=== PATIENT | male | born 1985 | race Caucasian/White ===

== ENCOUNTER 2016-03-01 08:05 | Emergency (ER) | payer OTHER ==
[2016-03-01] MEDS ORDERED: MORPHINE 4 MG/ML 1ML SYRINGE As Ordered ONE (08:55)
[2016-03-01] MEDS ORDERED: ONDANSETRON 4MG/2ML VIAL (J2405) As Ordered ONE (08:55)
--- NOTE | 2016-03-01 09:34 | REP ---
Clinical: Chest pain . Comparison: 01/23/2016 . Technique: PA and lateral. Findings: The mediastinum and cardiac silhouette are normal. The lung yusuf are clear and without acute consolidation, effusion, or pneumothorax. The skeletal structures are intact and normal. Impression: 1. No acute cardiopulmonary process. Signed by Morteza Dubon MD 03/01/2016 09:26 A
[2016-03-01] MEDS ORDERED: PERCOCET 5MG/325MG TAB As Ordered ONE (09:49)
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
== END 2016-03-01 10:02 | disposition home or self-care (01) ==
LOC: M ED 08:05
DX: M25.512 Pain in left shoulder (principal); R20.2 Paresthesia of skin; R29.898 Other symptoms and signs involving the musculoskeletal system; D84.1 Defects in the complement system; Z86.73 Personal history of transient ischemic attack (TIA), and cerebral infarction without residual deficits; F17.200 Nicotine dependence, unspecified, uncomplicated; Z79.82 Long term (current) use of aspirin; Z79.899 Other long term (current) drug therapy; Z88.8 Allergy status to other drugs, medicaments and biological substances

== ENCOUNTER 2016-03-06 09:27 | Emergency (ER) | payer OTHER ==
[2016-03-06] MEDS ORDERED: PERCOCET 5MG/325MG TAB As Ordered ONE (10:02)
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
== END 2016-03-06 10:05 | disposition home or self-care (01) ==
LOC: M ED 09:27
DX: M79.602 Pain in left arm (principal); E88.09 Other disorders of plasma-protein metabolism, not elsewhere classified; F17.210 Nicotine dependence, cigarettes, uncomplicated; Z79.82 Long term (current) use of aspirin; Z79.899 Other long term (current) drug therapy; Z88.8 Allergy status to other drugs, medicaments and biological substances

== ENCOUNTER 2016-03-12 14:47 | Emergency (ER) | payer OTHER ==
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
[2016-03-13] MEDS ORDERED: VARE05TA PO (14:44)
[2016-03-13] MEDS ORDERED: NEUR600T PO (14:44)
[2016-03-13] MEDS ORDERED: OXYC1TAB23 PO (14:44)
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
== END 2016-03-12 15:19 | disposition home or self-care (01) ==
LOC: M ED 14:47
DX: Z76.0 Encounter for issue of repeat prescription (principal); M79.602 Pain in left arm; G89.29 Other chronic pain; D84.1 Defects in the complement system; Z86.73 Personal history of transient ischemic attack (TIA), and cerebral infarction without residual deficits; Z87.828 Personal history of other (healed) physical injury and trauma; Z79.899 Other long term (current) drug therapy; Z79.82 Long term (current) use of aspirin; Z88.8 Allergy status to other drugs, medicaments and biological substances; F17.210 Nicotine dependence, cigarettes, uncomplicated

== ENCOUNTER → 2016-03-13 | Outpatient (CLI) | payer OTHER ==
[~2016-03-13] MED LIST: DOXYCYCLINE HYCLATE 100 MG TAB PO ONE; LR 1,000 ML IV SCH; MIDAZOLAM INJ 2 MG/2 ML VIAL (J2250) As Ordered ONE; NEUR600T PO; OXYC1TAB23 PO; VARE05TA PO
[2016-03-13 15:50] VITALS: BP 115/72
--- NOTE | 2016-03-13 15:53 | T-ECHO ---
DATE OF PROCEDURE: 03/13/2016 REFERRING PHYSICIAN: PREPROCEDURE DIAGNOSIS: Acute cerebellar stroke. POSTPROCEDURE DIAGNOSIS: Acute cerebellar stroke. FINDINGS: Normal transesophageal echocardiogram (JACI). No patent foramen ovale (PFO). PROCEDURE: Transesophageal echocardiogram with saline contrast IV times four. SURGEON: Holland Howard MD REAL ESTATE UTILIZATION OFFICER: None. CONSCIOUS SEDATION: Light conscious sedation with midazolam 4 mg IV. COMPLICATIONS: None. DESCRIPTION OF PROCEDURE: Rhythm was sinus. The patient received Cetacaine spray to the back of the pharynx. She received a total of 4 mg of midazolam IV for light conscious sedation. The patient tolerated the procedure well without any immediate complications. Esophageal intubation was accomplished using a Jennifer multiplane two-dimensional transesophageal echocardiogram probe. The left and right ventricles appeared normal in size and systolic function. No regional wall motion abnormalities of the left ventricle. No intracardiac masses or spontaneous echo contrast. No vegetations on any of the cardiac valves. Atrial septum was intact anatomically. No color flow Doppler was seen across the intraatrial septum. No patent foramen ovale could be demonstrated with saline contrast IV times four with Valsalva maneuver release. Aortic valve was three-cuspid and was structurally functional. Mitral leaflets were structurally and functionally normal with very mild mitral regurgitation within normal limits. Tricuspid leaflets were normal. Pulmonic valve was normal with trace pulmonic regurgitation. No pericardial effusion. Distal aortic arch and descending thoracic aorta were normal. CONCLUSIONS: 1. Normal transesophageal echocardiogram. 2. Negative for detection of intracardiac shunting or patent foramen ovale with saline contrast IV times four.
== END ==
LOC: M OPP 13:52
PROVIDERS: ATTEND Internal Medicine Cardiovascular Disease
DX: I63.8 Other cerebral infarction (principal); K76.9 Liver disease, unspecified; Z79.899 Other long term (current) drug therapy; Z88.8 Allergy status to other drugs, medicaments and biological substances

== ENCOUNTER 2016-07-22 15:29 | Emergency (ER) | payer MEDICAID, OTHER ==
[~2016-07-22] VITALS: Ht 185.4 cm; Wt 81.6 kg
[~2016-07-22 15:29] MED LIST changes: -DOXYCYCLINE HYCLATE 100 MG TAB PO ONE; -LR 1,000 ML IV SCH; -MIDAZOLAM INJ 2 MG/2 ML VIAL (J2250) As Ordered ONE
[2016-07-22] MEDS ORDERED: C1 ESTERASE INHIBITOR IV ONE (16:00)
[2016-07-22] MEDS ORDERED: EPINEPHrine INJ 1 MG/ML 1ML AMP IM STA (16:00)
[2016-07-22] MEDS ORDERED: DILUENT IV ONE (16:00)
[2016-07-22] MEDS ORDERED: EPINEPHrine INJ 1 MG/ML 1ML AMP As Ordered ONE (16:03)
[2016-07-22 17:37] VITALS: BP 147/89
[2016-07-22 20:23] LABS: ANION GAP 7 MEQ/L (8-16); BLOOD UREA NITROGEN 11 MG/DL (7-18); CALCIUM LEVEL 6.1 MG/DL (8.5-10.1); CARBON DIOXIDE LEVEL 21 MEQ/L (21-32); CHLORIDE LEVEL 120 MEQ/L (98-107); CREATININE FOR GFR 0.44 MG/DL (0.70-1.30); GLOMERULAR FILTRATION RATE > 60.0 (>60); GLUCOSE, FASTING 76 MG/DL (70-105); SODIUM LEVEL 148 MEQ/L (136-145)
== END 2016-07-22 17:50 | disposition home or self-care (01) ==
LOC: M ED 17:24
DX: Z76.5 Malingerer [conscious simulation] (principal); Z86.73 Personal history of transient ischemic attack (TIA), and cerebral infarction without residual deficits; Z88.8 Allergy status to other drugs, medicaments and biological substances
CPT/HCPCS: 80048; 96372; 96374; 99283; J0597

== ENCOUNTER → 2017-07-07 | Outpatient (CLI) | payer MEDICAID | LOC: M OUTALCOH 08:07 | DX: F11.20 Opioid dependence, uncomplicated (principal) ==

== ENCOUNTER 2017-07-17 13:42 | Outpatient (RCR) | payer MEDICAID | END 2017-08-15 | LOC: M OUTALCOH 13:42 | DX: F11.20 Opioid dependence, uncomplicated (principal); F17.200 Nicotine dependence, unspecified, uncomplicated; F12.20 Cannabis dependence, uncomplicated ==

== ENCOUNTER 2017-12-24 10:23 | Emergency (ER) | payer OTHER, MEDICAID ==
[2017-12-24 11:33] LABS: HEMATOCRIT 44.4 % (42.0-52.0); HEMOGLOBIN 14.6 g/dl (13.5-17.5); MEAN CORPUSCULAR HEMOGLOBIN 26.5 pg (27.0-33.0); MEAN CORPUSCULAR HGB CONC 32.9 g/dl (32.0-36.5); MEAN CORPUSCULAR VOLUME 80.6 fl (80.0-96.0); PLATELET COUNT, AUTOMATED 241 10^3/uL (150-450); RED BLOOD COUNT 5.51 10^6/uL (4.30-6.10); RED CELL DISTRIBUTION WIDTH 14.5 % (11.5-14.5); WHITE BLOOD COUNT 7.7 10^3/uL (4.0-10.0)
[2017-12-24 12:11] LABS: ALBUMIN 4.2 GM/DL (3.2-5.2); ALBUMIN/GLOBULIN RATIO 1.14 (1.00-1.93); ALKALINE PHOSPHATASE 96 U/L (45-117); ALT/SGPT 95 U/L (12-78); ANION GAP 4 MEQ/L (8-16); AST/SGOT 42 U/L (7-37); BILIRUBIN,DIRECT 0.2 MG/DL (0.0-0.2); BILIRUBIN,TOTAL 1.1 MG/DL (0.2-1.0); BLOOD UREA NITROGEN 13 MG/DL (7-18); CALCIUM LEVEL 9.6 MG/DL (8.5-10.1); CARBON DIOXIDE LEVEL 30 MEQ/L (21-32); CHLORIDE LEVEL 107 MEQ/L (98-107); CREATININE FOR GFR 0.82 MG/DL (0.70-1.30); GLOMERULAR FILTRATION RATE > 60.0 (>60); GLUCOSE, FASTING 92 MG/DL (70-100); POTASSIUM SERUM 4.4 MEQ/L (3.5-5.1); SODIUM LEVEL 141 MEQ/L (136-145); TOTAL PROTEIN 7.9 GM/DL (6.4-8.2)
[2017-12-24 12:31] LABS: APPEARANCE, URINE CLEAR (CLEAR); BACTERIA, URINE AUTO NEGATIVE (NEGATIVE); BILIRUBIN, URINE AUTO NEGATIVE (NEGATIVE); BLOOD, URINE BLOOD 1+ (NEGATIVE); COLOR, URINE STRAW (YELLOW); GLUCOSE, URINE (UA) AUTO NEGATIVE (NEGATIVE); KETONE, URINE AUTO NEGATIVE (NEGATIVE); LEUKOCYTE ESTERASE, URINE AUTO NEGATIVE (NEGATIVE); NITRITE, URINE AUTO NEGATIVE (NEGATIVE); PROTEIN, URINE AUTO NEGATIVE (NEGATIVE); RBC, URINE AUTO 2 /HPF (0-3); SPECIFIC GRAVITY URINE AUTO 1.004 (1.002-1.035); SQUAMOUS EPITHELIAL CELL UR AU 0 /HPF (0-6); UROBILINOGEN, URINE AUTO 0.2 mg/dL (0.0-2.0); WBC, URINE AUTO 1 /HPF (0-3)
== END 2017-12-24 13:20 | disposition home or self-care (01) ==
LOC: M ED 10:23
DX: H05.229 Edema of unspecified orbit (principal); I25.10 Atherosclerotic heart disease of native coronary artery without angina pectoris; B19.20 Unspecified viral hepatitis C without hepatic coma; I67.1 Cerebral aneurysm, nonruptured; Z79.899 Other long term (current) drug therapy; Z88.8 Allergy status to other drugs, medicaments and biological substances
CPT/HCPCS: 80076

== ENCOUNTER 2018-05-07 21:05 | Inpatient (IN) | payer OTHER ==
[~2018-05-07] VITALS: Ht 185.4 cm; Wt 99.3 kg
[2018-05-07] MEDS ORDERED: BUPR15TA (21:31)
[2018-05-07] MEDS ORDERED: IBUP200C25 PO (21:31)
[2018-05-07] MEDS ORDERED: MIRT45TA4 (21:31)
[2018-05-07] MEDS ORDERED: BUSP30TA (21:31)
[2018-05-07] MEDS ORDERED: PROPOFOL 1,000 MG/100 ML VIAL As Ordered ONE (21:33)
[2018-05-07] MEDS ORDERED: SUCCINYLCHOLINE INJ 200 MG/10 ML VIAL (J0330) IV STA (21:36)
[2018-05-07] MEDS ORDERED: ETOMIDATE INJ 20MG/10ML VIAL IV STA (21:36)
[2018-05-07] MEDS: PROPOFOL 200 MG/20 ML VIAL IV ONE (21:37)
[2018-05-07] MEDS ORDERED: PROPOFOL 200 MG/20 ML VIAL IV ONE ×2 (21:45→22:00)
[2018-05-07] MEDS ORDERED: PROPOFOL 1,000 MG in APPROPRIATE DILUENT 1 EA IV SCH (21:45)
[2018-05-07 21:59] LABS: BASO # 0.1 10^3/uL (0.0-0.2); BASO % 0.5 % (0.0-1.0); EOS # 0.2 10^3/uL (0.0-0.50); EOS % 1.5 % (0.0-3.0); HEMATOCRIT 46.9 % (42.0-52.0); HEMOGLOBIN 15.4 g/dl (13.5-17.5); LYMPH # 2.8 10^3/uL (1.5-4.5); LYMPH % 21.4 % (24.0-44.0); MEAN CORPUSCULAR HGB CONC 32.8 g/dl (32.0-36.5); MEAN CORPUSCULAR VOLUME 82.1 fl (80.0-96.0); MONO % 7.9 % (0.0-5.0); NEUTROPHILS % 68.3 % (36.0-66.0); PLATELET COUNT, AUTOMATED 239 10^3/uL (150-450); RED BLOOD COUNT 5.71 10^6/uL (4.30-6.10); WHITE BLOOD COUNT 13.1 10^3/uL (4.0-10.0)
[2018-05-07] MEDS ORDERED: LIDOCAINE 2% 5ML JELLY UROJET TOP ONE (22:00)
[2018-05-07] MEDS ORDERED: NS 1,000 ML IV ONE (22:00)
[2018-05-07 22:03] LABS: ABG BASE EXCESS 0.9 (-2.0-2.0); ABG HCO3 25.1 MEQ/L (22.0-26.0); ABG O2 SATURATION 99.5 % (95.0-99.0); ABG PARTIAL PRESSURE O2 196.9 mmHg (75.0-100.0); ABG STANDARD HCO3 25.3 MEQ/L (22.0-26.0); ABG TOTAL CO2 26.3 MEQ/L (22.0-29.0); ABG pH (ARTERIAL) 7.427 UNITS (7.350-7.450)
[2018-05-07 22:30] LABS: ALT/SGPT 118 U/L (12-78); BILIRUBIN,DIRECT < 0.1 MG/DL (0.0-0.2); BILIRUBIN,TOTAL 0.7 MG/DL (0.2-1.0); BLOOD UREA NITROGEN 17 MG/DL (7-18); CALCIUM LEVEL 8.6 MG/DL (8.5-10.1); CARBON DIOXIDE LEVEL 25 MEQ/L (21-32); CHLORIDE LEVEL 108 MEQ/L (98-107); CREATININE FOR GFR 0.91 MG/DL (0.70-1.30); GLOMERULAR FILTRATION RATE > 60.0 (>60); GLUCOSE, FASTING 84 MG/DL (70-100); POTASSIUM SERUM 4.8 MEQ/L (3.5-5.1); SODIUM LEVEL 142 MEQ/L (136-145); TOTAL PROTEIN 7.8 GM/DL (6.4-8.2)
[2018-05-07 22:39] LABS: AMPHETAMINES LEVEL URINE NEGATIVE (NEGATIVE); BARBITURATES URINE NEGATIVE (NEGATIVE); BENZODIAZEPINES URINE NEGATIVE (NEGATIVE); CANNABINOIDS URINE NEGATIVE (NEGATIVE); COCAINE METABOLITE URINE NEGATIVE (NEGATIVE); METHADONE URINE NEGATIVE (NEGATIVE); OPIATES URINE NEGATIVE (NEGATIVE); PHENCYCLIDINE URINE NEGATIVE (NEGATIVE)
[2018-05-07] MEDS ORDERED: dexameTHASONE 20 MG/5 ML VIAL (J1100) IV ONE (23:15)
[2018-05-07] MEDS ORDERED: PATIENT COMMENTS (23:40)
[2018-05-08] VITALS (34 sets, daily range): BP systolic 98–119; BP diastolic 51–73; O2SAT 98–100
[2018-05-08] MEDS: PROPOFOL 1,000 MG in APPROPRIATE DILUENT 1 EA IV SCH ×7 (00:20→22:04)
[2018-05-08] MEDS: MIDAZOLAM HCL 100 MG in D5W 80 ML IV SCH ×2 (00:30→02:50)
[2018-05-08] MEDS ORDERED: REFRIGERATOR IV KEYS XX PRN (00:30)
[2018-05-08] MEDS: FAMOTIDINE IV BAG 20 MG in APPROPRIATE DILUENT 1 EA IV SCH ×3 (00:33→23:53)
[2018-05-08] MEDS: D5W/0.45% SODIUM CHLORIDE 1,000 ML IV SCH ×4 (00:33→20:40)
[2018-05-08] MEDS: MORPHINE 4 MG/ML 1ML VIAL/SYRINGE (J2270) IV PRN (00:40)
[2018-05-08] MEDS: ALBUTEROL SULFATE 2.5 MG/0.5 ML INH NEB SOLN NEB SCH ×6 (02:42→21:26)
[2018-05-08] MEDS: methylPREDNISolone INJ 125 MG/2 ML VIAL (J2930) IV SCH ×2 (03:13→11:49)
[2018-05-08] MEDS: HEPARIN SOD (PORCINE) 5000 UNITS/ML VIAL SC SCH ×3 (05:03→21:59)
[2018-05-08 05:52] LABS: ABG HCO3 21.6 MEQ/L (22.0-26.0); ABG O2 SATURATION 99.6 % (95.0-99.0); ABG PARTIAL PRESSURE CO2 41.4 mmHg (35.0-45.0); ABG PARTIAL PRESSURE O2 206.7 mmHg (75.0-100.0); ABG STANDARD HCO3 21.2 MEQ/L (22.0-26.0); ABG TOTAL CO2 22.9 MEQ/L (22.0-29.0); ABG pH (ARTERIAL) 7.336 UNITS (7.350-7.450)
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
[2018-05-08] MEDS: CHLORHEXIDINE GLUCONATE 0.12 % 15ML UDC (PERIDEX ORAL RINSE) MT SCH ×2 (08:02→20:39)
[2018-05-08 08:45] LABS: BASO % 0.3 % (0.0-1.0); HEMATOCRIT 41.5 % (42.0-52.0); LYMPH # 0.9 10^3/uL (1.5-4.5); LYMPH % 13.1 % (24.0-44.0); MEAN CORPUSCULAR HEMOGLOBIN 26.7 pg (27.0-33.0); MEAN CORPUSCULAR HGB CONC 32.3 g/dl (32.0-36.5); MEAN CORPUSCULAR VOLUME 82.8 fl (80.0-96.0); MONO # 0.1 10^3/uL (0.0-0.8); NEUTROPHILS % 85.3 % (36.0-66.0); PLATELET COUNT, AUTOMATED 147 10^3/uL (150-450); RED BLOOD COUNT 5.01 10^6/uL (4.30-6.10)
[2018-05-08] MEDS ORDERED: MIDAZOLAM INJ 2 MG/2 ML VIAL (J2250) IV PRN (09:00)
[2018-05-08 09:05] LABS: HEMOGLOBIN 13.4 g/dl (13.5-17.5)
[2018-05-08 09:23] LABS: ALBUMIN 3.3 GM/DL (3.2-5.2); ALT/SGPT 91 U/L (12-78); BILIRUBIN,TOTAL 0.6 MG/DL (0.2-1.0); BLOOD UREA NITROGEN 13 MG/DL (7-18); CALCIUM LEVEL 8.4 MG/DL (8.5-10.1); CARBON DIOXIDE LEVEL 24 MEQ/L (21-32); CHLORIDE LEVEL 108 MEQ/L (98-107); CHOLESTEROL LEVEL 124 MG/DL (< 200); CPK CREATINE PHOSPHOKINASE 217 U/L (39-308); CREATININE FOR GFR 0.96 MG/DL (0.70-1.30); GLOMERULAR FILTRATION RATE > 60.0 (>60); GLUCOSE, FASTING 182 MG/DL (70-100); LDH LACTATE DEHYDROGENASE 191 U/L (87-241); PHOSPHORUS LEVEL 2.4 MG/DL (2.5-4.9); POTASSIUM SERUM 4.2 MEQ/L (3.5-5.1); SODIUM LEVEL 141 MEQ/L (136-145); TOTAL PROTEIN 6.7 GM/DL (6.4-8.2); TRIGLYCERIDES LEVEL 46 MG/DL (<150)
[2018-05-08] MEDS ORDERED: MIDAZOLAM INJ 2 MG/2 ML VIAL (J2250) As Ordered ONE (10:01)
[2018-05-08] MEDS: MIDAZOLAM INJ 2 MG/2 ML VIAL (J2250) IV PRN ×7 (10:05→21:49)
--- NOTE | 2018-05-08 10:12 | REP ---
CHEST, PORTABLE: AP portable view of the chest is performed and compared to a prior study of 03/01/2016. Endotracheal tube is seen with tip approximately 5.2 cm above the jade. Heart is normal in size. Mediastinal silhouette is unremarkable. There is no acute infiltrate in either lung. Electronically Signed by Marcin Gonzales MD 05/08/2018 06:51 P
--- NOTE | 2018-05-08 10:15 | REP ---
PORTABLE CHEST: AP portable view of the chest is performed and compared to prior exam 05/07/2018. Lungs remain free of infiltrate. Heart is normal in size and the mediastinal silhouette is unremarkable. Endotracheal tube is seen with the tip approximately 4.5 cm above the jade. Nasogastric tube is seen but the sideport is difficult to visualize. The tube does appear to traverse into the stomach. Electronically Signed by Marcin Gonzales MD 05/08/2018 06:51 P
--- NOTE | 2018-05-08 10:32 | REP ---
PORTABLE CHEST: AP portable view of the chest is performed and compared to a prior exam of the same day. Endotracheal tube is seen with the tip approximately 4.2 cm above the jade. Nasogastric tube traverses into the stomach, but the sideport is difficult to visualize. Remainder of the study is unchanged. Electronically Signed by Marcin Gonzales MD 05/08/2018 06:51 P
--- NOTE | 2018-05-08 12:41 | CCN ---
CRITICAL CARE PROGRESS NOTE DATE OF VISIT: 05/08/2018 start time 10:35, stop time 11:09. I again attended Taran Kirby here in the intensive care unit. Patient has been admitted and chart is reviewed. He remains intubated and stayed mechanically ventilated. Less edema of his lips today. Tongue appears a little smaller. T-max overnight 98, blood pressure 98 to the one-teens, heart rate 70-90 with a sinus mechanism. He does over breath the ventilatory. INTAKE AND OUTPUT: 1647 mL in with 570 mL out. Chest x-ray is clear. White blood cell count 7.0, hemoglobin of 30.4, platelet count of 147,000, 84% segmented neutrophils, no bands. Sodium 141, potassium 4.2, chloride 108, CO2 24, BUN 13, creatinine 0.96. Blood gas done in a PRVC rate of 16, tidal volume of 450, PEEP of 5, FiO2 of 30%, has a pH of 7.336, CO2 of 41.4, pO2 of 206.7. Toxicology screen negative. PHYSICAL EXAMINATION: He is sedate, but moves all extremities with sedation even moderately lightened. Pupils reactive, sclera clear. Trachea is midline. Still has some mild edema of his lips. Tongue appears much less edematous than decreased to me in the emergency room (ER). Trachea is in the midline. CHEST: Clear to auscultation and percussion. Symmetric expansion. No other focal adventitious breath sounds on exam. Pulses palpable throughout. CARDIAC EXAM: Regular with no murmur, rub, or gallop. Peripheral pulses palpable with no edema. ABDOMEN: Soft, nontender. There is active bowel sounds. No convincing organomegaly or masses. EXTREMITIES: No cyanosis or clubbing. NEUROLOGIC: He is sedate, but moves all extremities. The most pressing problems requiring my presence at the bedside: Respiratory failure secondary to need for airway protection from angioedema, hereditary. Drug ingested likely is the precipitating event. Known drug abuse. At this point we will slowly steroids. We will continue H2 blockers. I will begin enteral feeds. We will slowly begin weaning his ventilatory. Once it is better he should be able to have his sedation discontinued and hopefully he will quickly extubate at that time. I have spoken at length with the guards at the bedside. At this point we will proceed as outline above. He does remain critically ill. I left the bedside at 1109 hours. 34 minutes of critical care time spent at the bedside not including procedures. JANET
[2018-05-08 18:16] LABS: ABG BASE EXCESS -1.9 (-2.0-2.0); ABG HCO3 23.2 MEQ/L (22.0-26.0); ABG O2 SATURATION 98.8 % (95.0-99.0); ABG PARTIAL PRESSURE CO2 40.8 mmHg (35.0-45.0); ABG PARTIAL PRESSURE O2 123.3 mmHg (75.0-100.0); ABG STANDARD HCO3 22.9 MEQ/L (22.0-26.0); ABG TOTAL CO2 24.5 MEQ/L (22.0-29.0); ABG pH (ARTERIAL) 7.373 UNITS (7.350-7.450)
[2018-05-09] VITALS (46 sets, daily range): BP systolic 103–170; BP diastolic 55–77; O2SAT 98–99
[2018-05-09] MEDS: MIDAZOLAM INJ 2 MG/2 ML VIAL (J2250) IV PRN ×12 (00:52→21:23)
[2018-05-09] MEDS: ALBUTEROL SULFATE 2.5 MG/0.5 ML INH NEB SOLN NEB SCH ×6 (01:08→21:03)
[2018-05-09] MEDS: PROPOFOL 1,000 MG in APPROPRIATE DILUENT 1 EA IV SCH ×10 (01:37→23:10)
[2018-05-09] MEDS: methylPREDNISolone INJ 40 MG/1 ML VIAL (J2920) IV SCH ×3 (04:29→20:30)
[2018-05-09 05:04] LABS: ABG BASE EXCESS 1.8 (-2.0-2.0); ABG HCO3 25.7 MEQ/L (22.0-26.0); ABG O2 SATURATION 99.1 % (95.0-99.0); ABG PARTIAL PRESSURE CO2 37.9 mmHg (35.0-45.0); ABG PARTIAL PRESSURE O2 151.5 mmHg (75.0-100.0); ABG STANDARD HCO3 26.1 MEQ/L (22.0-26.0); ABG TOTAL CO2 26.9 MEQ/L (22.0-29.0); ABG pH (ARTERIAL) 7.449 UNITS (7.350-7.450)
[2018-05-09] MEDS: MORPHINE 4 MG/ML 1ML VIAL/SYRINGE (J2270) IV PRN ×3 (05:07→22:27)
[2018-05-09 05:10] LABS: BASO % 0.1 % (0.0-1.0); EOS % 0.1 % (0.0-3.0); HEMATOCRIT 35.4 % (42.0-52.0); HEMOGLOBIN 11.6 g/dl (13.5-17.5); LYMPH # 2.1 10^3/uL (1.5-4.5); LYMPH % 12.4 % (24.0-44.0); MEAN CORPUSCULAR HEMOGLOBIN 26.5 pg (27.0-33.0); MEAN CORPUSCULAR HGB CONC 32.8 g/dl (32.0-36.5); MONO # 1.2 10^3/uL (0.0-0.8); MONO % 7.1 % (0.0-5.0); NEUTROPHILS # 13.5 10^3/uL (1.8-7.7); NEUTROPHILS % 79.9 % (36.0-66.0); PLATELET COUNT, AUTOMATED 177 10^3/uL (150-450); RED BLOOD COUNT 4.37 10^6/uL (4.30-6.10); WHITE BLOOD COUNT 16.8 10^3/uL (4.0-10.0)
[2018-05-09 05:37] LABS: ALT/SGPT 64 U/L (12-78); BILIRUBIN,TOTAL 0.3 MG/DL (0.2-1.0); BLOOD UREA NITROGEN 11 MG/DL (7-18); CALCIUM LEVEL 7.8 MG/DL (8.5-10.1); CARBON DIOXIDE LEVEL 25 MEQ/L (21-32); CHLORIDE LEVEL 109 MEQ/L (98-107); CHOLESTEROL LEVEL 119 MG/DL (< 200); CPK CREATINE PHOSPHOKINASE 138 U/L (39-308); CREATININE FOR GFR 0.79 MG/DL (0.70-1.30); GLOMERULAR FILTRATION RATE > 60.0 (>60); GLUCOSE, FASTING 158 MG/DL (70-100); LDH LACTATE DEHYDROGENASE 141 U/L (87-241); PHOSPHORUS LEVEL 3.3 MG/DL (2.5-4.9); SODIUM LEVEL 143 MEQ/L (136-145); TOTAL PROTEIN 5.7 GM/DL (6.4-8.2); TRIGLYCERIDES LEVEL 56 MG/DL (<150)
[2018-05-09] MEDS: HEPARIN SOD (PORCINE) 5000 UNITS/ML VIAL SC SCH ×3 (06:25→21:23)
[2018-05-09] MEDS: D5W/0.45% SODIUM CHLORIDE 1,000 ML IV SCH ×2 (06:28→17:04)
[2018-05-09] MEDS: CHLORHEXIDINE GLUCONATE 0.12 % 15ML UDC (PERIDEX ORAL RINSE) MT SCH ×2 (07:33→22:26)
[2018-05-09] MEDS ORDERED: RACEPINEPHrine 2.25 % UD INHA As Ordered ONE (10:02)
[2018-05-09] MEDS ORDERED: MIDAZOLAM INJ 2 MG/2 ML VIAL (J2250) As Ordered ONE (10:06)
--- NOTE | 2018-05-09 11:07 | REP ---
CHEST, PORTABLE: AP portable view of the chest is performed and compared to a prior study of 05/08/2018. Patient is rotated somewhat toward to the left. Endotracheal tube and nasogastric tube are again noted. Sideport of the nasogastric tube is not visualized. The nasogastric tube does traverse into the stomach. Heart is normal in size. Mediastinal silhouette is grossly unchanged. No new infiltrate is seen. IMPRESSION: Essentially stable exam. Electronically Signed by Marcin Gonzales MD 05/09/2018 05:44 P
[2018-05-09 11:44] LABS: ABG BASE EXCESS 1.9 (-2.0-2.0); ABG HCO3 26.4 MEQ/L (22.0-26.0); ABG PARTIAL PRESSURE CO2 41.2 mmHg (35.0-45.0); ABG PARTIAL PRESSURE O2 138.2 mmHg (75.0-100.0); ABG STANDARD HCO3 26.2 MEQ/L (22.0-26.0); ABG TOTAL CO2 27.7 MEQ/L (22.0-29.0); ABG pH (ARTERIAL) 7.425 UNITS (7.350-7.450)
[2018-05-09] MEDS: FAMOTIDINE IV BAG 20 MG in APPROPRIATE DILUENT 1 EA IV SCH (12:14)
--- NOTE | 2018-05-09 12:45 | REP ---
PORTABLE CHEST: AP portable view of the chest is performed and compared to a prior exam of the same day. Endotracheal tube is seen with the tip approximately 3.5 cm above the jade. Nasogastric tube is seen traversing into the stomach. Distal end is not visualized. Lungs remain free of infiltrate. The heart is normal in size and the mediastinal silhouette is unremarkable. Electronically Signed by Marcin Gonzales MD 05/09/2018 06:11 P
--- NOTE | 2018-05-09 13:33 | CCN ---
DATE: 05/09/2018 START TIME: 858 STOP TIME: 937 I again attended Taran Kirby here in the intensive care unit. The patient has been examined and chart is reviewed. Maximum temperature (T-max) overnight 100, blood pressure 100-115, heart rate generally in the 80s, respiratory rate anywhere from 18-30. Intake and output midnight to midnight were 4239 mL in with 1875 mL out. LABORATORY DATA: White blood cell count 16.8, hemoglobin 11.6, platelet count 177,000, 79% segmented cells, no bands. Sodium 143, potassium 4.0, chloride 109, CO2 25, BUN 11, creatinine 0.79, glucose 158. Blood gas this morning done on a PRVC rate of 10, tidal volume 450, PEEP of 5, FiO2 at 30% with his respiratory rate between 18 and 20 shows a pH of 7.449, pCO2 of 37.9, pO2 of 151.5. Chest x-ray shows lines and tubes in good position. No infiltrate. PHYSICAL EXAMINATION: He is sedate but arousable. He does intermittently follow commands but is intermittently agitated. He tries to write when he is awakened. Pupils reactive. Sclerae clear. Trachea is in the midline. Lips and tongue appear less edematous. Trachea is in the midline. LUNGS: Clear to auscultation and percussion. Symmetric expansion. No other focal adventitious breath sounds on exam. Tactile fremitus palpable throughout. CARDIAC: Regular with no gallop. Peripheral pulses palpable with no edema. ABDOMEN: Soft, nontender with active bowel sounds. EXTREMITIES: No cyanosis or clubbing. NEUROLOGIC: He moves all extremities. The most pressing problems requiring my presence at the bedside: 1. Respiratory failure secondary to angioedema. 2. Angioedema, hereditary. 3. Drug ingestion, suspected as the trigger. 4. Known drug abuse. At this point, it appears that we may be able to achieve extubation this morning. He was placed on an intermittent mandatory ventilation (IMV) with good tidal volumes. Ventilation requirements are minimal. We will discontinue sedation. We held his tube feeds and placed his orogastric (OG) tube to suction. We will have a trial of extubation here shortly. I left the bedside at 0938 hours and 44 minutes of critical care time spent at the bedside, not including procedures.
--- NOTE | 2018-05-09 13:39 | CCN ---
DATE: 05/09/2018 START TIME: 1002 STOP TIME: 1020 I again attended Taran Kirby. I was called by the nursing staff as he was not following commands. There were some sonorous intermittent stridorous respirations. Heart rate remained in the 90s and saturation on 40% FiO2 98% to 99%. PHYSICAL EXAMINATION: He would not follow commands. When his eyelids were opened, his eyes immediately went down and to the left. Intermittently kicking his legs but again would not follow commands. Due to the respiratory status as noted above, he was intubated. Of interest is that after Versed his respiratory status improved somewhat. His cords were watched with the GlideScope prior to intubation. They did appear to move normally. There was no spasm. He had a good cough. The directionality of his eye movements dissipated as well. He was intubated without difficulty. In view of the above, however, I wonder more about some underlying neurological or psychological component to his above presentation. We will repeat a CT scan of his head today, although his movements are by no means focal and there does not appear to be a focal neurologic deficit. We will reinstitute care prior to his extubation. I left the bedside at 1020 hours. An additional 18 minutes of critical care time delivered at the bedside not including procedures.
--- NOTE | 2018-05-09 14:27 | RO ---
DATE OF PROCEDURE: 05/09/2018 PREPROCEDURE DIAGNOSIS: Stridorous respirations. POSTPROCEDURE DIAGNOSIS: Stridorous respirations. PROCEDURE: Endotracheal intubation. SURGEON: Dr. Jone Jonas GUARDIAN FAMILY MEMBER: ANESTHESIA: 2 mg intravenous Versed. DESCRIPTION OF PROCEDURE: The patient was intermittently stridorous, would not follow commands. Almost intermittent seizure activity. Saturations remain 98%. Due to his respiratory status, however, and inability to follow commands, he was given 2 mg of intravenous Versed; and with the use of a GlideScope, a #8.0 endotracheal tube was passed beyond the level of the cords under direct visualization. Of interest is the cords appeared to move normally, which would go against active stridor. No complications noted. Good color change on the CO2 detector. Tube placed back at 24 cm at the lip, which is what his previous tube was at. Chest x-ray is pending at the time of this dictation.
[2018-05-10] VITALS (28 sets, daily range): BP systolic 102–137; BP diastolic 55–78; O2SAT 98–99
[2018-05-10] MEDS: ALBUTEROL SULFATE 2.5 MG/0.5 ML INH NEB SOLN NEB SCH ×6 (00:15→19:57)
[2018-05-10] MEDS: PROPOFOL 1,000 MG in APPROPRIATE DILUENT 1 EA IV SCH ×8 (01:55→22:37)
[2018-05-10] MEDS: D5W/0.45% SODIUM CHLORIDE 1,000 ML IV SCH ×3 (03:45→23:01)
[2018-05-10] MEDS: MIDAZOLAM INJ 2 MG/2 ML VIAL (J2250) IV PRN ×11 (04:12→22:44)
[2018-05-10 04:23] LABS: BASO % 0.1 % (0.0-1.0); HEMATOCRIT 34.6 % (42.0-52.0); HEMOGLOBIN 11.4 g/dl (13.5-17.5); LYMPH # 1.1 10^3/uL (1.5-4.5); LYMPH % 9.1 % (24.0-44.0); MEAN CORPUSCULAR HEMOGLOBIN 27.3 pg (27.0-33.0); MEAN CORPUSCULAR HGB CONC 32.9 g/dl (32.0-36.5); MONO # 0.7 10^3/uL (0.0-0.8); MONO % 5.3 % (0.0-5.0); NEUTROPHILS # 10.5 10^3/uL (1.8-7.7); NEUTROPHILS % 84.9 % (36.0-66.0); PLATELET COUNT, AUTOMATED 158 10^3/uL (150-450); RED BLOOD COUNT 4.17 10^6/uL (4.30-6.10); WHITE BLOOD COUNT 12.4 10^3/uL (4.0-10.0)
[2018-05-10 04:51] LABS: ALBUMIN 2.9 GM/DL (3.2-5.2); ALT/SGPT 50 U/L (12-78); BILIRUBIN,TOTAL 0.2 MG/DL (0.2-1.0); BLOOD UREA NITROGEN 11 MG/DL (7-18); CALCIUM LEVEL 7.8 MG/DL (8.5-10.1); CARBON DIOXIDE LEVEL 30 MEQ/L (21-32); CHLORIDE LEVEL 108 MEQ/L (98-107); CHOLESTEROL LEVEL 119 MG/DL (< 200); CPK CREATINE PHOSPHOKINASE 123 U/L (39-308); CREATININE FOR GFR 0.67 MG/DL (0.70-1.30); GLOMERULAR FILTRATION RATE > 60.0 (>60); GLUCOSE, FASTING 166 MG/DL (70-100); LDH LACTATE DEHYDROGENASE 123 U/L (87-241); PHOSPHORUS LEVEL 3.2 MG/DL (2.5-4.9); POTASSIUM SERUM 4.3 MEQ/L (3.5-5.1); SODIUM LEVEL 144 MEQ/L (136-145); TOTAL PROTEIN 5.8 GM/DL (6.4-8.2); TRIGLYCERIDES LEVEL 63 MG/DL (<150)
[2018-05-10] MEDS: methylPREDNISolone INJ 40 MG/1 ML VIAL (J2920) IV SCH ×3 (04:53→20:05)
[2018-05-10] MEDS: HEPARIN SOD (PORCINE) 5000 UNITS/ML VIAL SC SCH ×3 (05:09→22:36)
[2018-05-10 05:34] LABS: ABG BASE EXCESS 1.3 (-2.0-2.0); ABG HCO3 25.6 MEQ/L (22.0-26.0); ABG O2 SATURATION 99.2 % (95.0-99.0); ABG PARTIAL PRESSURE CO2 39.7 mmHg (35.0-45.0); ABG PARTIAL PRESSURE O2 154.7 mmHg (75.0-100.0); ABG STANDARD HCO3 25.7 MEQ/L (22.0-26.0); ABG TOTAL CO2 26.9 MEQ/L (22.0-29.0); ABG pH (ARTERIAL) 7.428 UNITS (7.350-7.450)
--- NOTE | 2018-05-10 06:50 | REP ---
CT BRAIN WITHOUT CONTRAST; CT brain performed without IV contrast. Ventricles are normal in size and position with no midline shift or mass effect. Gonzales-white differentiation is well maintained. There is no acute intracranial hemorrhage or extra-axial fluid collection. Bone window examination is unremarkable. IMPRESSION: Negative noncontrast CT brain. Electronically Signed by Marcin Gonzales MD 05/10/2018 09:16 A
[2018-05-10] MEDS: CHLORHEXIDINE GLUCONATE 0.12 % 15ML UDC (PERIDEX ORAL RINSE) MT SCH ×2 (08:02→20:05)
--- NOTE | 2018-05-10 08:21 | REP ---
Chest x-ray: Single view. History: Respiratory failure. Comparison study: May 09, 2018. Findings: Endotracheal tube is seen in good position at the level of proximal clavicles. An NG tube enters left upper quadrant of the abdomen. EKG monitoring electrodes are seen. Heart is not enlarged. Lungs are well inflated and clear. Pleural angles are sharp. Pulmonary vasculature is not increased. Impression: Endotracheal and nasogastric tubes in place. No acute disease. Electronically Signed by Yaron Cherry MD 05/10/2018 08:12 A
--- NOTE | 2018-05-10 10:21 | CCN ---
DATE: 05/10/2018 START TIME: 911 STOP TIME: 949 I again attended Taran Kirby here in the intensive care unit. The patient is sedated, intubated and mechanically ventilated. He failed extubation yesterday for basically altered mental status with some respiratory issues, although he had normal appearing cords and no stridor. He was able to initially follow commands. T-max overnight 99.5, heart rate in the 70s to 90s with a sinus mechanism, blood pressure 106 to 115. Ins and outs midnight to midnight 5034 mL in with [address] of the head unremarkable. Chest x-ray shows no acute findings. White blood cell count 12.4, hemoglobin 11.4, and platelet count 158,000 with 84.9% segs, 0 bands. Sodium 144, potassium 4.3, chloride 108, CO2 30, BUN 11, creatinine 0.67. Blood gas done on a SIMV of 10, tidal volume 450, PEEP 5, pressure support 10, FiO2 of 30% has a pH of 7.428, pCO2 39.7 and pO2 of 154.7. He is tolerating tube feeds. Ulcer and deep vein thrombosis (DVT) prophylaxis in place. On exam, he is sedate. Moves all extremities. He does follow commands despite reasonable dose of propofol. Able to stick out his tongue and lift his arms to command and opens his eyes. He tracks movements in the room. However, with certain stimulation he makes motions that are almost a posturing type movement which certainly would not fit with the above and raises the question of a behavioral component. On exam, he is easily arousable. Pupils react. Sclerae are clear. Trachea is in the midline. Membranes of the mouth and tongue do not appear to be grossly swollen. Chest shows occasional rhonchi that clear with suctioning. Expansion is symmetric. No focal adventitious breath sounds otherwise are identified. Cardiac exam is regular with no gallop. Peripheral pulses palpable. No edema. The abdomen is soft with active bowel sounds. No convincing organomegaly or masses. Extremities without cyanosis or clubbing. Neurologically as outlined above. The most pressing problems requiring my presence at the bedside are: 1. Respiratory failure secondary to angioedema. 2. Altered mental status. Suspect multifactorial. Cannot discount drug ingestion. 3. Witnessed drug ingestion prior to presentation. 4. History of drug abuse. At this point, will check an EEG with a question of some seizure activity yesterday. I have spoken with ENT who will evaluate his hypopharynx today. CT scan of the head was unremarkable. He remains on low dose steroids as well as H2 blockers. He is tolerating tube feeds. Ulcer and DVT prophylaxis are in place. If ENT is comfortable with the appearance of his hypopharynx, then probably tomorrow morning hopefully he can have another trial of extubation. Will continue the current level of care in the view of the above. At this point, he does remain critically ill. I left the bedside at 0950 hours. 38 minutes of critical care time delivered at the bedside, not including procedures.
[2018-05-10] MEDS: FAMOTIDINE IV BAG 20 MG in APPROPRIATE DILUENT 1 EA IV SCH ×3 (12:22)
[2018-05-10] MEDS: MORPHINE 4 MG/ML 1ML VIAL/SYRINGE (J2270) IV PRN (12:38)
[2018-05-11] VITALS (24 sets, daily range): BP systolic 110–165; BP diastolic 60–88; O2SAT 98–100
[2018-05-11] MEDS: FAMOTIDINE IV BAG 20 MG in APPROPRIATE DILUENT 1 EA IV SCH ×3 (00:09→23:35)
[2018-05-11] MEDS: MIDAZOLAM INJ 2 MG/2 ML VIAL (J2250) IV PRN ×6 (00:09→23:35)
[2018-05-11] MEDS: ALBUTEROL SULFATE 2.5 MG/0.5 ML INH NEB SOLN NEB SCH ×6 (00:27→20:30)
[2018-05-11] MEDS: PROPOFOL 1,000 MG in APPROPRIATE DILUENT 1 EA IV SCH ×10 (01:12→23:09)
[2018-05-11] MEDS: LevoFLOXacin IV 500 MG in APPROPRIATE DILUENT 1 EA IV SCH (01:47)
[2018-05-11] MEDS: ACETAMINOPHEN 325 MG/10.15 ML UDC GT PRN ×2 (01:47→21:24)
[2018-05-11] MEDS: methylPREDNISolone INJ 40 MG/1 ML VIAL (J2920) IV SCH ×3 (03:26→20:23)
[2018-05-11 04:57] LABS: BASO % 0.1 % (0.0-1.0); HEMOGLOBIN 11.7 g/dl (13.5-17.5); LYMPH # 1.5 10^3/uL (1.5-4.5); LYMPH % 12.6 % (24.0-44.0); MEAN CORPUSCULAR HEMOGLOBIN 26.9 pg (27.0-33.0); MEAN CORPUSCULAR HGB CONC 32.5 g/dl (32.0-36.5); MEAN CORPUSCULAR VOLUME 82.8 fl (80.0-96.0); MONO # 1.2 10^3/uL (0.0-0.8); NEUTROPHILS # 8.9 10^3/uL (1.8-7.7); NEUTROPHILS % 76.8 % (36.0-66.0); PLATELET COUNT, AUTOMATED 161 10^3/uL (150-450); RED BLOOD COUNT 4.35 10^6/uL (4.30-6.10); WHITE BLOOD COUNT 11.6 10^3/uL (4.0-10.0)
[2018-05-11 05:31] LABS: ALBUMIN 2.9 GM/DL (3.2-5.2); ALT/SGPT 45 U/L (12-78); BILIRUBIN,TOTAL 0.5 MG/DL (0.2-1.0); BLOOD UREA NITROGEN 13 MG/DL (7-18); CALCIUM LEVEL 7.9 MG/DL (8.5-10.1); CARBON DIOXIDE LEVEL 30 MEQ/L (21-32); CHLORIDE LEVEL 108 MEQ/L (98-107); CHOLESTEROL LEVEL 122 MG/DL (< 200); CPK CREATINE PHOSPHOKINASE 143 U/L (39-308); CREATININE FOR GFR 0.76 MG/DL (0.70-1.30); GLOMERULAR FILTRATION RATE > 60.0 (>60); GLUCOSE, FASTING 146 MG/DL (70-100); LDH LACTATE DEHYDROGENASE 122 U/L (87-241); SODIUM LEVEL 143 MEQ/L (136-145); TOTAL PROTEIN 6.1 GM/DL (6.4-8.2); TRIGLYCERIDES LEVEL 92 MG/DL (<150)
[2018-05-11 05:52] LABS: ABG BASE EXCESS 3.6 (-2.0-2.0); ABG HCO3 27.6 MEQ/L (22.0-26.0); ABG O2 SATURATION 97.7 % (95.0-99.0); ABG PARTIAL PRESSURE CO2 39.4 mmHg (35.0-45.0); ABG PARTIAL PRESSURE O2 95.4 mmHg (75.0-100.0); ABG STANDARD HCO3 27.7 MEQ/L (22.0-26.0); ABG TOTAL CO2 28.8 MEQ/L (22.0-29.0); ABG pH (ARTERIAL) 7.463 UNITS (7.350-7.450)
[2018-05-11] MEDS: HEPARIN SOD (PORCINE) 5000 UNITS/ML VIAL SC SCH ×3 (06:04→21:25)
[2018-05-11] MEDS: CHLORHEXIDINE GLUCONATE 0.12 % 15ML UDC (PERIDEX ORAL RINSE) MT SCH ×2 (08:04→20:24)
[2018-05-11] MEDS: D5W/0.45% SODIUM CHLORIDE 1,000 ML IV SCH ×3 (08:04→20:24)
[2018-05-11] MEDS ORDERED: ISOVUE-370 76% 125ML VIAL (Q9967 PER ML) As Ordered ONE (08:26)
--- NOTE | 2018-05-11 09:46 | REP ---
Portable chest x-ray: Single view: History: Respiratory failure. Comparison study is from previous day May 10, 2018. Findings: Endotracheal tube remains in position at the level of the transverse aorta. An NG tube enters left upper quadrant. EKG electrodes are seen. The lungs are well inflated. There is some increased markings at the right base today which may reflect discoid atelectasis. Pleural angles are sharp. Lung yusuf are otherwise clear. Heart size normal. Impression: Increased density at the right base consistent with discoid atelectasis. Electronically Signed by Yaron Cherry MD 05/11/2018 11:31 A
[2018-05-12] VITALS (20 sets, daily range): BP systolic 110–135; BP diastolic 59–83
[2018-05-12] MEDS: ALBUTEROL SULFATE 2.5 MG/0.5 ML INH NEB SOLN NEB SCH ×7 (00:41→23:35)
[2018-05-12] MEDS: LevoFLOXacin IV 500 MG in APPROPRIATE DILUENT 1 EA IV SCH (01:31)
[2018-05-12] MEDS: PROPOFOL 1,000 MG in APPROPRIATE DILUENT 1 EA IV SCH ×9 (01:32→22:39)
[2018-05-12] MEDS: methylPREDNISolone INJ 40 MG/1 ML VIAL (J2920) IV SCH ×3 (03:48→20:06)
[2018-05-12 04:56] LABS: BASO % 0.1 % (0.0-1.0); HEMATOCRIT 37.2 % (42.0-52.0); LYMPH # 1.1 10^3/uL (1.5-4.5); LYMPH % 11.4 % (24.0-44.0); MEAN CORPUSCULAR HEMOGLOBIN 26.6 pg (27.0-33.0); MEAN CORPUSCULAR HGB CONC 32.3 g/dl (32.0-36.5); MEAN CORPUSCULAR VOLUME 82.5 fl (80.0-96.0); MONO # 0.8 10^3/uL (0.0-0.8); MONO % 8.8 % (0.0-5.0); NEUTROPHILS # 7.5 10^3/uL (1.8-7.7); NEUTROPHILS % 79.2 % (36.0-66.0); PLATELET COUNT, AUTOMATED 165 10^3/uL (150-450); RED BLOOD COUNT 4.51 10^6/uL (4.30-6.10); WHITE BLOOD COUNT 9.5 10^3/uL (4.0-10.0)
[2018-05-12 05:12] LABS: ALBUMIN 2.6 GM/DL (3.2-5.2); ALT/SGPT 32 U/L (12-78); BILIRUBIN,TOTAL 0.5 MG/DL (0.2-1.0); BLOOD UREA NITROGEN 18 MG/DL (7-18); CALCIUM LEVEL 8.2 MG/DL (8.5-10.1); CARBON DIOXIDE LEVEL 30 MEQ/L (21-32); CHLORIDE LEVEL 107 MEQ/L (98-107); CHOLESTEROL LEVEL 131 MG/DL (< 200); CPK CREATINE PHOSPHOKINASE 89 U/L (39-308); CREATININE FOR GFR 0.71 MG/DL (0.70-1.30); GLOMERULAR FILTRATION RATE > 60.0 (>60); GLUCOSE, FASTING 153 MG/DL (70-100); LDH LACTATE DEHYDROGENASE 130 U/L (87-241); PHOSPHORUS LEVEL 3.2 MG/DL (2.5-4.9); SODIUM LEVEL 143 MEQ/L (136-145); TOTAL PROTEIN 6.5 GM/DL (6.4-8.2); TRIGLYCERIDES LEVEL 80 MG/DL (<150)
[2018-05-12] MEDS: HEPARIN SOD (PORCINE) 5000 UNITS/ML VIAL SC SCH ×3 (05:16→22:28)
[2018-05-12] MEDS: MIDAZOLAM INJ 2 MG/2 ML VIAL (J2250) IV PRN ×6 (05:16→23:40)
[2018-05-12 05:55] LABS: ABG BASE EXCESS 2.2 (-2.0-2.0); ABG HCO3 26.5 MEQ/L (22.0-26.0); ABG O2 SATURATION 98.2 % (95.0-99.0); ABG PARTIAL PRESSURE CO2 40.4 mmHg (35.0-45.0); ABG PARTIAL PRESSURE O2 106.1 mmHg (75.0-100.0); ABG STANDARD HCO3 26.4 MEQ/L (22.0-26.0); ABG TOTAL CO2 27.8 MEQ/L (22.0-29.0); ABG pH (ARTERIAL) 7.435 UNITS (7.350-7.450)
--- NOTE | 2018-05-12 06:39 | EEG ---
DATE OF EE05/10/2018 REFERRING PHYSICIAN: Dr. Cornelius Pickens DIAGNOSIS: Altered mental status. EEG NUMBER: [id number] HISTORY: The patient is a 33-year-old male with history of drug abuse and is currently incarcerated. He has a history of hereditary angioedema. He developed tongue swelling, shortness of breath and was intubated. He has a history of cerebral aneurysm with a cerebrovascular accident. The patient is currently on propofol, prednisone, Versed, morphine, Pepcid, etc. TECHNICAL DESCRIPTION: This digital EEG was recorded by 21 scalp, ear and two EKG electrodes and was reviewed in bipolar and referential montages following reformatting in 10-20 international electrode placement system. INTERPRETATION: The patient was noted to be in drowsy and sedated state throughout this EEG. Background rhythm consisted of 5-6 Hz theta activity with underlying diffuse delta activity of stage 3 and 4 sleep. Intermittent frontally predominant bilateral beta activity was noted due to medication effect. Stage 2, 3 and 4 sleep were recorded. Hyperventilation could not be performed. Photic stimulation remained unremarkable. EKG revealed normal sinus rhythm. No focal, lateralizing or epileptiform abnormalities were seen. No clinical or electrographic seizures were recorded. CONCLUSION: This EEG in a mechanically ventilated patient on sedation in stage 2, 3 and 4 is within normal limits. Underlying delta slowing and beta activity is likely due to medication effect. Clinical correlation is recommended.
[2018-05-12] MEDS: CHLORHEXIDINE GLUCONATE 0.12 % 15ML UDC (PERIDEX ORAL RINSE) MT SCH ×2 (08:04→22:22)
--- NOTE | 2018-05-12 08:20 | REP ---
Portable chest x-ray: Single view. History: Respiratory failure. Comparison study: May 11, 2018. Findings: Endotracheal tube is seen in good position at the level of the proximal clavicles. NG tube enters the left upper quadrant of the abdomen. The patient is rotated somewhat to the left for the current exposure. There is hazy opacity at the right base which may reflect a small amount of pleural fluid. No definite infiltrate. Electronically Signed by Yaron Cherry MD 05/12/2018 03:49 P
[2018-05-12] MEDS ORDERED: BISACODYL 10 MG SUPP PR PRN (09:45)
[2018-05-12] MEDS: VANCOMYCIN HCL 1,000 MG, VIAL MATE ADAPTER 1 EACH in D5W 250 ML IV SCH ×2 (09:47→18:00)
--- NOTE | 2018-05-12 09:59 | REP ---
CT NECK WITHOUT CONTRAST: HISTORY: Respiratory failure. An ET tube and NG tube are present. Secretions are present in the naso- and upper oropharynx. There is soft tissue fullness in the left tongue base. Several punctate collections of air are present. The larynx and subglottic trachea are normal in appearance. The salivary and thyroid glands are normal in size and density. Small lymph nodes less than 1 cm in size are present in the internal jugular chains, posterior triangles and submandibular areas. The lung apices are clear. Mucosal thickening is present in the maxillary and left ethmoid sinuses. Air fluid levels are present in the maxillary sinuses. IMPRESSION: 1. The examination is limited secondary to the presence of ET and NG tubes. There is soft tissue fullness in the left tongue base. Several punctate collections of air are present. A small abscess cannot be excluded. 2. There are air fluid levels in the maxillary sinuses consistent with acute sinusitis. Electronically Signed by Thuan Almanza MD 05/12/2018 10:10 A
--- NOTE | 2018-05-12 10:13 | PHACANCOPD ---
PHARMACY VANCOMYCIN DOSING Pt Demographics Demographics Patient Age:33 , Weight:95.400 , Gender: male Adjusted Body Weight Date: 05/12/18, Adjusted Body Weight: Kg Events Past 24 Hours Events Past 24 Hours: YES: Pending Diagnostics Vancomycin Vancomycin indication: VAP Vancomycin Target Ranges: 15-20 mcg/ml Vancomycin Load Y/N: Yes Load Dose Date Time Vancomycin Load Dose: 2g Date: 05/12/18 Time: 1000 Vancomycin Dose Date: 05/12/18. Current Vancomycin Dose: [1g IV Q8H] Intermittent Dosing?: No Labs Labs Item Value Date Time White Blood Count 9.5 10^3/uL 05/12/18 0434 White Blood Count 11.6 10^3/uL H 05/11/18 0444 White Blood Count 12.4 10^3/uL H 05/10/18 0355 White Blood Count 16.8 10^3/uL H 05/09/18 0456 Blood Urea Nitrogen 18 MG/DL 05/12/18 0434 Blood Urea Nitrogen 13 MG/DL 05/11/18 0444 Blood Urea Nitrogen 11 MG/DL 05/10/18 0355 Creatinine 0.71 MG/DL 05/12/18 0434 Creatinine 0.76 MG/DL 05/11/18 0444 Creatinine 0.67 MG/DL L 05/10/18 0355 Micro Microbiology 05/11/18 Blood Culture - Preliminary, Resulted No growth after 24 hours . All specim... 05/11/18 Blood Culture - Preliminary, Resulted No growth after 24 hours . All specim... 05/11/18 Gram Stain - Final, Resulted 05/11/18 Sputum Culture - Preliminary, Resulted Staphylococcus Aureus Creatinine Clearance Date:05/12/18. Est Creatinine Clearance: [~>100ml/min]. Pending Labs Vancomycin trough scheduled 05/13/18 @0900, prior to the 4th dose Assessment and Plan Maintaining Current Dose?: Yes Reason for dose change: No Dose Change Pharmacist Note Pharmacist Note Date: 05/12/18. Pharmacist note: Day #1 vancomycin therapy initiated with a 2g loading dose @1000, followed by a maintenance regimen of 1g IV Q8H starting at 1800 for the treatment of VAP with preliminary sputum culture results growing heavy staph aureus. The patient has been intubated since 05/08/18 and sputum cultures were obtain 05/11/18. The patient was admitted with respiratory failure 2/2 angioedema, and remains intubated at this time. Blood cultures remain negative. CXR today showed "hazy opacity at the right base which may reflect a small amount of pleural fluid. No definite infiltrate." The patient has no PMH of MRSA or vanco use here at [facility]. WBC WNL, and the pts last fever was 05/11/18 at 100.2. A vancomycin level has been scheduled to be drawn tomorrow, 05/13/18, at 0900 - prior to the 4th dose. We will continue to monitor and adjust dosing if needed. TREY SANTOS PHARMACY May 12, 2018 10:13
--- NOTE | 2018-05-12 10:31 | CCN ---
DATE OF SERVICE: 05/12/2018 START TIME: 911 STOP TIME: 946 I again attended Taran Kirby here in the intensive care unit (ICU). Patient has been examined and chart is reviewed. I spoke at length with Dr. Wan from ENT regarding him. I did get a CT scan of the neck this morning but without contrast as the [place] [facility] would not sign for it. He remains with significant secretions. Sputum did grow staphylococcus aureus and sensitivities are pending. Most recent laboratories show white blood cell count of 9.5, hemoglobin 12.0, platelet count 165,000, 79.2% segmented neutrophils, no bands. Sodium 143, potassium 4.0, chloride 107, CO2 30, BUN 18, creatinine 0.71, glucose 153. Arterial blood gas done on SIMV of 6, tidal volume 450, PEEP of 5, FiO2 of 40%. Pressure support of 10. pH 7.435, pCO2 of 40.4, pO2 of 106.1. Saturation 98.2%. Chest x-ray I do believe shows a little bit more of right lower lobe infiltrate today although his white count is better. T-max overnight still 102.4. Heart rate generally in the 70s to low teens. Blood pressure 110-165 systolic. Ins and outs 4940 mL in with 3475 mL out. On exam, he is sedate but arousable. Moves all extremities. Intermittently states dyspnea. Does have a productive cough, requires some suctioning for thick intermittent thick secretions. Pupils do react. Sclera clear. No obvious edema of the lips. Trachea is in the midline. Chest shows diminished but symmetric expansion. There are coarse rhonchi right greater than left. No wheezing. Maybe a faint rub at the right base. Heart exam is currently regular with no gallop. Peripheral pulses palpable. No edema. Abdomen soft, nontender, active bowel sounds. No hepatosplenomegaly or masses. Extremities: No cyanosis or clubbing. Neurologically: Sedate but moves all extremities. Psychiatric exam: He is sedate. Ulcer and deep venous thrombosis (DVT) prophylaxis in place. He remains on low dose steroids for his suspected angioedema as well as IV Pepcid. Most pressing problems requiring my presence at the beside: Respiratory failure secondary to angioedema. Right lower lobe infiltrate, sputum with staphylococcus. Hereditary angioedema. Drug ingestion. History of drug abuse. At this point, I await further opinion from ENT. At least in my eye on the preliminary view of the CT scan, although he has reasonable area at the extreme hypopharynx, there is really no extra area around the mid tongue. Hopefully he does not need a surgical airway. For now, he will continue on the Levaquin. I will add vancomycin until his sensitivities are pending, although his fever spike continues, his white blood cell count is improved. He continues on nebulized bronchodilators. We will proceed as outlined above. He remains critically ill. Although we are weaning him from the ventilator, I cannot extubate him until I get formal opinion regarding patency of his upper airway. I left the bedside at 0947 hours. 35 minutes of critical care time delivered at bedside not including procedures. JANET
--- NOTE | 2018-05-12 10:40 | CR ---
DATE OF CONSULTATION: 05/11/2018 CHIEF COMPLAINT: Acute respiratory failure and stridor post extubation. HISTORY OF PRESENT ILLNESS: The patient is currently intubated and on Propofol drip. I obtained the history via reviewing the medical chart. Per records, the patient presented to [facility] emergency department in the evening of 05/07/2018 due to shortness of breath. He informed the [facility] emergency department that he had a history of hereditary angioedema. Shortly thereafter he developed swelling of the tongue with acute respiratory failure. As such, he was intubated on an emergency basis. He was then admitted to the intensive care unit (ICU) for further medical management. Additional history obtained from the guards indicated that the patient was trading pills in [place] [facility]. The type of medication exchange was uncertain. The toxicology screen so far is negative. A trial of extubation was attempted on 05/09/2018. The patient developed stridor post extubation. In addition, there were concerns about possible seizure activity. As such, he was reintubated shortly after the extubation. I was asked by the intensive care unit (ICU) attending to evaluate the patient for possible upper airway issues that may have contributed to his extubation failure. ALLERGIES: DANAZOL. MEDICATIONS: - ibuprofen - BuSpar - mirtazapine PAST MEDICAL HISTORY: 1. Brain aneurysm with cerebrovascular accident resulting in some neurologic sequela. SOCIAL HISTORY: Currently incarcerated. Known tobacco and drug user. FAMILY HISTORY: Unobtainable. REVIEW OF SYSTEMS: As listed in history of present illness, otherwise negative up to the presentation to the emergency department. PHYSICAL EXAMINATION: On examination, the patient is currently intubated and ventilated. He is currently sedated. He does not respond appropriately to commands at this time. EARS: Normal external ears. No otorrhea. FACE: Normocephalic with no gross facial asymmetry. NOSE: Normal external nasal anatomy. ORAL CAVITY: Copious secretions. Exam limited due to presence of endotracheal tube and orogastric tube. NECK: No palpable cervical lymphadenopathy. Trachea midline. PROCEDURE: Flexible laryngoscopy. Indication is acute respiratory failure and history of hereditary angioedema and failure to extubate. The procedure was deemed necessary in order to proceed with necessary medical care to determine the nature of acute respiratory failure and in order to achieve safe extubation with a safe airway compactable with life. The flexible laryngoscope was lubricated at the tip. It was atraumatically introduced into the right nares. The nasal cavity, nasopharynx and oral cavity were examined and found to be free of mucosal lesion. Copious amount of secretion was encountered in the oropharyngeal area. Significant crowding was present due to the endotracheal tube, as well as orogastric tube. Visualization in the supraglottis, glottis and the hypopharyngeal area was not possible at this time. As such, the procedure was terminated atraumatically. No complication was encountered. IMPRESSION: 37-year-old man with acute respiratory failure, currently intubated. PLAN: Comprehensive endoscopic visualization of the upper airway via flexible laryngoscopy could not be achieved due to presence of the endotracheal tube and orogastric tube. As such, imaging studies, including a CT scan of the neck will be helpful to delineate and to rule out possible soft tissue pathology that may prevent the patient from achieving a safe extubation. CT scan of the neck was ordered.
[2018-05-12] MEDS ORDERED: VANCOMYCIN HCL 1,000 MG, VIAL MATE ADAPTER 1 EACH in D5W 250 ML IV ONE (11:00)
[2018-05-12] MEDS: FAMOTIDINE IV BAG 20 MG in APPROPRIATE DILUENT 1 EA IV SCH ×2 (12:18→23:40)
[2018-05-12] MEDS: D5W/0.45% SODIUM CHLORIDE 1,000 ML IV SCH ×2 (15:08→22:19)
--- NOTE | 2018-05-12 22:49 | CCN ---
DATE: 05/11/2018 START TIME: 0906 hours STOP TIME: 0940 hours I again attended Taran Kirby here in the intensive care unit. Patient has been examined. His chart was reviewed. He was seen by ear, nose, and throat (ENT) last evening, and I spoke with Dr. Wan in that regard. He spiked a temperature overnight of 102.4. He is back down to 99.4 this morning. Blood pressure 120 to 130s, heart rate 80 to the 1-teens with a sinus mechanism. He does over-breathe the ventilator. Intake and output (I and O) midnight to midnight 4890 mL in with 3600 mL out. White blood cell count 11.6, hemoglobin 11.7, platelet count 161,000, 76.8% segmented neutrophils, no bands. Sodium 143, potassium (K) 4.0, chloride 108, CO2 of 30, BUN 13, creatinine 0.76, glucose 146. Blood gas done on an SIMV of 6, tidal volume 450, PEEP of 5, pressure support of 10, FiO2 of 45% has pH 7.463, pCO2 of 39.4, pO2 of 95.4. Chest x-ray shows no acute findings, although there may be a question of an early right lower lobe infiltrate compared to yesterday. On exam, although he is sedate, he is easily arousable. He does intermittently follow commands. At times, he is combative. Pupils do react. Sclerae clear. Trachea is midline. Membranes appear moist. I believe there is minimal edema. Chest does show some rhonchi but no focal adventitious breath sounds. Cardiac exam is regular with no gallop. Peripheral pulses palpable. No obvious edema. Abdomen is soft with active bowel sounds. No convincing organomegaly or masses. Extremities without cyanosis or clubbing. Neurologically, as outlined above. Most pressing problems requiring my presence at the bedside: 1. Respiratory failure secondary to altered mental status. 2. Hereditary angioedema. 3. Question exacerbation of edema secondary to illicit drug use. 4. History of drug abuse. In view of his fever and polymicrobial sputum, we started Levaquin last evening. He is afebrile this morning. I await the report of his EEG. CT of the neck has been ordered by ENT. They ordered contrast, but no one is available to give contrast. I will check with them to see if this can be done without contrast. We will continue to monitor him. My hope is that within the next 24-48 hours, we can again have a trial of extubation; but, again, ENT is involved and I await their re-evaluation of his upper airway. In the interim, he is tolerating tube feeds. He remains on ulcer deep venous thrombosis (DVT) prophylaxis. We will continue his low-dose steroids. He does remain critically ill. Prognosis in view of the above is guarded. I left the bedside at 0940 hours. 34 minutes of critical care time delivered at the bedside, not including procedures.
[2018-05-13] VITALS (24 sets, daily range): BP systolic 119–137; BP diastolic 61–80
[2018-05-13] MEDS: LevoFLOXacin IV 500 MG in APPROPRIATE DILUENT 1 EA IV SCH (00:17)
[2018-05-13] MEDS: PROPOFOL 1,000 MG in APPROPRIATE DILUENT 1 EA IV SCH ×10 (01:07→22:28)
[2018-05-13] MEDS: MORPHINE 4 MG/ML 1ML VIAL/SYRINGE (J2270) IV PRN ×2 (01:12→22:36)
[2018-05-13] MEDS: MIDAZOLAM INJ 2 MG/2 ML VIAL (J2250) IV PRN ×7 (02:09→22:06)
[2018-05-13] MEDS: VANCOMYCIN HCL 1,000 MG, VIAL MATE ADAPTER 1 EACH in D5W 250 ML IV SCH ×3 (02:09→17:59)
[2018-05-13] MEDS: ALBUTEROL SULFATE 2.5 MG/0.5 ML INH NEB SOLN NEB SCH ×6 (03:18→23:08)
[2018-05-13] MEDS: methylPREDNISolone INJ 40 MG/1 ML VIAL (J2920) IV SCH ×3 (03:53→19:48)
[2018-05-13] MEDS: HEPARIN SOD (PORCINE) 5000 UNITS/ML VIAL SC SCH ×3 (05:40→22:06)
[2018-05-13 05:57] LABS: ABG BASE EXCESS 3.5 (-2.0-2.0); ABG HCO3 27.7 MEQ/L (22.0-26.0); ABG O2 SATURATION 98.8 % (95.0-99.0); ABG PARTIAL PRESSURE CO2 40.8 mmHg (35.0-45.0); ABG PARTIAL PRESSURE O2 135.2 mmHg (75.0-100.0); ABG STANDARD HCO3 27.6 MEQ/L (22.0-26.0)
[2018-05-13 08:04] LABS: BASO % 0.2 % (0.0-1.0); HEMATOCRIT 37.5 % (42.0-52.0); HEMOGLOBIN 12.2 g/dl (13.5-17.5); LYMPH % 10.5 % (24.0-44.0); MEAN CORPUSCULAR HEMOGLOBIN 26.4 pg (27.0-33.0); MEAN CORPUSCULAR HGB CONC 32.5 g/dl (32.0-36.5); MEAN CORPUSCULAR VOLUME 81.2 fl (80.0-96.0); MONO # 0.6 10^3/uL (0.0-0.8); MONO % 6.7 % (0.0-5.0); NEUTROPHILS # 7.4 10^3/uL (1.8-7.7); NEUTROPHILS % 80.2 % (36.0-66.0); PLATELET COUNT, AUTOMATED 125 10^3/uL (150-450); RED BLOOD COUNT 4.62 10^6/uL (4.30-6.10); WHITE BLOOD COUNT 9.3 10^3/uL (4.0-10.0)
[2018-05-13 08:16] LABS: ALBUMIN 2.5 GM/DL (3.2-5.2); ALT/SGPT 27 U/L (12-78); BILIRUBIN,TOTAL 0.4 MG/DL (0.2-1.0); BLOOD UREA NITROGEN 21 MG/DL (7-18); CALCIUM LEVEL 8.5 MG/DL (8.5-10.1); CARBON DIOXIDE LEVEL 28 MEQ/L (21-32); CHLORIDE LEVEL 106 MEQ/L (98-107); CHOLESTEROL LEVEL 160 MG/DL (< 200); CPK CREATINE PHOSPHOKINASE 65 U/L (39-308); CREATININE FOR GFR 0.64 MG/DL (0.70-1.30); GLOMERULAR FILTRATION RATE > 60.0 (>60); GLUCOSE, FASTING 172 MG/DL (70-100); LDH LACTATE DEHYDROGENASE 161 U/L (87-241); PHOSPHORUS LEVEL 3.3 MG/DL (2.5-4.9); POTASSIUM SERUM 4.3 MEQ/L (3.5-5.1); SODIUM LEVEL 143 MEQ/L (136-145); TOTAL PROTEIN 6.8 GM/DL (6.4-8.2); TRIGLYCERIDES LEVEL 85 MG/DL (<150)
[2018-05-13] MEDS: CHLORHEXIDINE GLUCONATE 0.12 % 15ML UDC (PERIDEX ORAL RINSE) MT SCH ×2 (08:19→20:49)
--- NOTE | 2018-05-13 09:10 | REP ---
CHEST, PORTABLE: Single portable view of the chest is performed and compared to prior study of 05/12/2018. Endotracheal tube and nasogastric tube are again noted. Mild parenchymal opacity in the right base is stable. There appears to be linear atelectatic change in the left base. Heart and mediastinum and unchanged. Electronically Signed by Marcin Gonzales MD 05/13/2018 11:43 A
--- NOTE | 2018-05-13 09:44 | CCN ---
DATE OF VISIT: 05/13/2018 START TIME: 840 STOP TIME: 917 I again attended Taran Kirby here in the intensive care unit. The patient has been examined and the chart is reviewed. We have been able to lighten the sedation somewhat, but when aroused he only intermittently follows commands. He is at times combative. He still has copious secretions both oral and endotracheal. T-max overnight 99.4, blood pressure 120 to 130s, heart rate in the 90s, respiratory rate generally in the teens to low 20s. Ins and outs midnight to midnight 4863 mL in with 3220 mL out. On exam, he is sedate, arousable, at times will follow commands. He does track movement in the room from time to time. Pupils react, sclerae are clear. Trachea is in the midline. Oral endotracheal and orogastric tube are in place. Chest does show rhonchi, right greater than left, that generally clears with suctioning. Not as convincing rub at the right base today. No other focal adventitious breath sounds are identified. Expansion is symmetric. Cardiac exam is generally regular. Peripheral pulses palpable, no edema. Abdomen soft. Active bowel sounds. No convincing organomegaly or masses. Neurologically, he is as outlined above. Sputum culture grew both Staphylococcus aureus and Haemophilus influenzae and both should be sensitive to the Levaquin which he is receiving. Blood cultures are negative to date. Chest x-ray shows both tubes in good position. His infiltrate at the right base is much less today. The most pressing problems requiring my presence at the bedside are: 1. Respiratory failure secondary to presumed angioedema. 2. Hereditary angioedema. 3. Illicit drug ingestion. 4. Right lower lobe pneumonia. 5. Tobacco abuse. At this point, will continue pulmonary toilet and steroids as well as his current antimicrobials. Ulcer and deep vein thrombosis (DVT) prophylaxis are in place. He had a failed extubation due to question of some upper airway compromise. CT of the neck does not show anything convincing and I have spoken with Dr. Wan from ENT and the plans are hopefully to have a trial of extubation again in the next 24 hours. He is tolerating tube feeds. Other levels of supportive care in place. A total of 37 minutes of critical care time was spent at the bedside not including procedures. JANET
[2018-05-13] MEDS: D5W/0.45% SODIUM CHLORIDE 1,000 ML IV SCH (10:00)
--- NOTE | 2018-05-13 10:20 | PHACANCOPD ---
PHARMACY VANCOMYCIN DOSING Pt Demographics Demographics Patient Age:33 , Weight:94.500 , Gender: male Adjusted Body Weight Date: 05/12/18, Adjusted Body Weight: Kg Vancomycin Vancomycin indication: VAP Vancomycin Target Ranges: 15-20 mcg/ml Vancomycin Load Y/N: Yes Load Dose Date Time Vancomycin Load Dose: 2g Date: 05/12/18 Time: 1000 Vancomycin Dose Date: 05/12/18. Current Vancomycin Dose: [1500Mg IV Q8H] Intermittent Dosing?: No Labs Micro Microbiology 05/11/18 Blood Culture - Preliminary, Resulted No Growth after 48 hours. All Specime... 05/11/18 Blood Culture - Preliminary, Resulted No Growth after 48 hours. All Specime... 05/11/18 Gram Stain - Final, Resulted 05/11/18 Sputum Culture - Preliminary, Resulted Staphylococcus Aureus Haemophilus Influenzae Creatinine Clearance Date:05/12/18. Est Creatinine Clearance: [~>100ml/min]. Pending Labs Vancomycin trough scheduled 05/13/18 @0900, prior to the 4th dose Assessment and Plan Maintaining Current Dose?: No Reason for dose change: Trough too low Pharmacist Note Pharmacist Note 05/13/18: Day #2 IV vancomycin therapy. Trough level today resulted at 8.9mcg/ml. Scr remains stable at 0.64 today from 0.71 yesterday. We will increase the reese batresnt's regimen from 1g IV Q8H to 1500mg IV Q8H. A follow-up vancomycin trough has been scheduled to be drawn tomorrow, 05/14/18, at 0900. We will continue to monitor and adjust dosing further if needed. Date: 05/12/18. Pharmacist note: Day #1 vancomycin therapy initiated with a 2g loading dose @1000, followed by a maintenance regimen of 1g IV Q8H starting at 1800 for the treatment of VAP with preliminary sputum culture results growing heavy staph aureus. The patient has been intubated since 05/08/18 and sputum cultures were obtain 05/11/18. The patient was admitted with respiratory failure 2/2 angioedema, and remains intubated at this time. Blood cultures remain negative. CXR today showed "hazy opacity at the right base which may reflect a small amount of pleural fluid. No definite infiltrate." The patient has no PMH of MRSA or vanco use here at [facility]. WBC WNL, and the pts last fever was 3/26/19 at 100.2. A vancomycin level has been scheduled to be drawn tomorrow, 05/13/18, at 0900 - prior to the 4th dose. We will continue to monitor and adjust dosing if needed. TREY SANTOS PHARMACY May 13, 2018 10:20
[2018-05-13] MEDS: VANCOMYCIN HCL 500 MG in D5W MINI-BAG PLUS 100 ML IV SCH ×2 (11:45→19:48)
[2018-05-13] MEDS: FAMOTIDINE IV BAG 20 MG in APPROPRIATE DILUENT 1 EA IV SCH ×2 (11:45→23:41)
[2018-05-14] VITALS (13 sets, daily range): BP systolic 105–146; BP diastolic 58–89
[2018-05-14] MEDS: D5W/0.45% SODIUM CHLORIDE 1,000 ML IV SCH (00:40)
[2018-05-14] MEDS: LevoFLOXacin IV 500 MG in APPROPRIATE DILUENT 1 EA IV SCH (00:53)
[2018-05-14] MEDS: PROPOFOL 1,000 MG in APPROPRIATE DILUENT 1 EA IV SCH ×3 (00:53→05:54)
[2018-05-14] MEDS: VANCOMYCIN HCL 1,000 MG, VIAL MATE ADAPTER 1 EACH in D5W 250 ML IV SCH ×3 (02:14→17:24)
[2018-05-14] MEDS: ALBUTEROL SULFATE 2.5 MG/0.5 ML INH NEB SOLN NEB SCH ×6 (03:01→23:24)
[2018-05-14] MEDS: methylPREDNISolone INJ 40 MG/1 ML VIAL (J2920) IV SCH ×2 (03:17→13:21)
[2018-05-14] MEDS: VANCOMYCIN HCL 500 MG in D5W MINI-BAG PLUS 100 ML IV SCH ×2 (03:19→10:45)
[2018-05-14] MEDS: HEPARIN SOD (PORCINE) 5000 UNITS/ML VIAL SC SCH (05:52)
[2018-05-14 05:58] LABS: ABG HCO3 29.3 MEQ/L (22.0-26.0); ABG PARTIAL PRESSURE CO2 46.6 mmHg (35.0-45.0); ABG PARTIAL PRESSURE O2 107.3 mmHg (75.0-100.0); ABG STANDARD HCO3 28.1 MEQ/L (22.0-26.0); ABG TOTAL CO2 30.7 MEQ/L (22.0-29.0); ABG pH (ARTERIAL) 7.416 UNITS (7.350-7.450)
[2018-05-14 07:50] LABS: HEMATOCRIT 37.2 % (42.0-52.0); HEMOGLOBIN 12.2 g/dl (13.5-17.5); MEAN CORPUSCULAR HEMOGLOBIN 26.5 pg (27.0-33.0); MEAN CORPUSCULAR HGB CONC 32.8 g/dl (32.0-36.5); MEAN CORPUSCULAR VOLUME 80.9 fl (80.0-96.0); PLATELET COUNT, AUTOMATED 214 10^3/uL (150-450); WHITE BLOOD COUNT 10.5 10^3/uL (4.0-10.0)
[2018-05-14 08:10] LABS: ALBUMIN 2.6 GM/DL (3.2-5.2); ALT/SGPT 28 U/L (12-78); BILIRUBIN,TOTAL 0.4 MG/DL (0.2-1.0); BLOOD UREA NITROGEN 23 MG/DL (7-18); CALCIUM LEVEL 8.3 MG/DL (8.5-10.1); CARBON DIOXIDE LEVEL 30 MEQ/L (21-32); CHLORIDE LEVEL 105 MEQ/L (98-107); CHOLESTEROL LEVEL 185 MG/DL (< 200); CPK CREATINE PHOSPHOKINASE 70 U/L (39-308); CREATININE FOR GFR 0.68 MG/DL (0.70-1.30); GLOMERULAR FILTRATION RATE > 60.0 (>60); GLUCOSE, FASTING 156 MG/DL (70-100); LDH LACTATE DEHYDROGENASE 129 U/L (87-241); PHOSPHORUS LEVEL 3.3 MG/DL (2.5-4.9); POTASSIUM SERUM 4.1 MEQ/L (3.5-5.1); SODIUM LEVEL 143 MEQ/L (136-145); TRIGLYCERIDES LEVEL 78 MG/DL (<150)
--- NOTE | 2018-05-14 08:13 | REP ---
Oral chest x-ray: Single view. History: Respiratory failure. Comparison study: May 13, 2018. Findings: EKG electrodes and oxygen delivery tubing are seen. NG tube is noted in place entering the left upper quadrant of the abdomen. Endotracheal tube is seen at the level of proximal clavicles. There is a linear area of increased density in the right lung base consistent with discoid atelectasis. A similar density seen in the left lung base with overlapping oxygen tubing. No new infiltrate is seen. Impression: No significant change from the previous day's radiograph. Electronically Signed by Yaron Cherry MD 05/14/2018 08:05 A
[2018-05-14 08:27] LABS: EOSINOPHILS 1 % (0-5); LYMPHOCYTES 20 % (16-52); METAMYELOCYTES 1 % (0-0); MONOCYTES 4 % (0-8); MYELOCYTES 3 % (0-0); NEUTROPHILS 64 % (35-75); PLATELET ESTIMATE NORMAL (NORMAL)
[2018-05-14 08:28] LABS: ANISOCYTOSIS 1+
[2018-05-14] MEDS: CHLORHEXIDINE GLUCONATE 0.12 % 15ML UDC (PERIDEX ORAL RINSE) MT SCH (09:22)
[2018-05-14 09:41] LABS: VANCOMYCIN LEVEL TROUGH 12.6 UG/ML (10.0-20.0)
--- NOTE | 2018-05-14 10:28 | CCN ---
DATE OF SERVICE: 05/14/2018 Mr. Kirby is seen in the intensive care unit (ICU). He is intubated, but following commands. Sedation vacation has been initiated and plans are for extubation today. Nursing notes the patient has been stable overnight. He is making urine. He is tolerating tube feeds at 65 mL an hour with no residuals. He is afebrile. PHYSICAL EXAMINATION: Vitals: Temperature is 99.0, pulse 89, blood pressure 127/68, respiratory rate 18, pulse oximetry 95%. The patient is on a ventilator, SIMV, with tidal volume of 450, rate of 6, PEEP of 5 and FIO2 of 40. General: The patient is alert. He is following basic commands. Nods his head yes or no. HEENT: Head is normocephalic, atraumatic. NECK: Supple. No cervical lymphadenopathy. Trachea is midline. Chest; Clear to auscultation bilaterally. No wheezes, rales or rhonchi. No accessory muscle use. Heart: Regular rate and rhythm. S1 and S2. No murmurs. Abdomen: Positive bowel sounds, soft, nontender. No rebound or guarding. Extremities: No clubbing, cyanosis or edema. Chest x-ray does show opacity in the right base, but no significant infiltrates. Tip of the endotracheal tube appears to be above the clavicles. LABORATORY DATA: ABG: pH 7.416, pCO2 is 46.6 and pO2 is 107.3. CBC has a WBC 10.5, hemoglobin 12.2, hematocrit 37.2, and platelets 214. Sodium 143, potassium 4.1, chloride 105, CO2 30, BUN 23, creatinine 0.68, blood sugar 156, and calcium is 8.3. ASSESSMENT/PLAN: 1. Respiratory failure. The patient is extubated. Initially, the patient did have likely vocal cord dysfunction, possibly related to anxiety after extubation, however, his O2 sats were good at 96-98%. He will be continued to be monitored closely for any signs of dyspnea. He does remain on Solu-Medrol at the present time. Continue to monitor closely. 2. Right lower lobe pneumonia. No significant infiltrate on x-ray. The patient should remain on IV antibiotics for a few more days. He is currently on vancomycin and Levaquin. 3. Probable drug overdose. The patient is being monitored closely. 4. Probable vocal cord dysfunction. This is likely functional and likely related to anxiety. 5. Rule out hereditary angioedema. We have ordered blood work including C1 esterase inhibitor as well as C3 and C4 complements to definitively determine whether or not the patient does have her hereditary angioedema. Total critical care time excluding all procedures was 45 minutes.
[2018-05-14] MEDS: FAMOTIDINE IV BAG 20 MG in APPROPRIATE DILUENT 1 EA IV SCH (13:21)
[2018-05-14] MEDS ORDERED: ENOXAPARIN 40 MG/0.4 ML SYRINGE (J1650) SC ONE (14:00)
--- NOTE | 2018-05-14 14:05 | PHACANCOPD ---
PHARMACY VANCOMYCIN DOSING Pt Demographics Demographics Patient Age:33 , Weight:92.100 , Gender: male Adjusted Body Weight Date: 05/12/18, Adjusted Body Weight: Kg Vancomycin Vancomycin indication: VAP Vancomycin Target Ranges: 15-20 mcg/ml Vancomycin Load Y/N: Yes Load Dose Date Time Vancomycin Load Dose: 2g Date: 05/12/18 Time: 1000 Vancomycin Dose Date: 05/12/18. Current Vancomycin Dose: [1500Mg IV Q8H] Intermittent Dosing?: No Labs Micro Microbiology 05/11/18 Blood Culture - Preliminary, Resulted No Growth after 72 hours. All specime... 05/11/18 Blood Culture - Preliminary, Resulted No Growth after 72 hours. All specime... 05/11/18 Gram Stain - Final, Complete 05/11/18 Sputum Culture - Final, Complete Staphylococcus Aureus Haemophilus Influenzae Streptococcus Group C Creatinine Clearance Date:05/12/18. Est Creatinine Clearance: [~>100ml/min]. Pending Labs Vancomycin trough scheduled 05/13/18 @0900, prior to the 4th dose Assessment and Plan Maintaining Current Dose?: No Reason for dose change: Trough too low Pharmacist Note Pharmacist Note 05/14/18: Day #3 IV vancomycin therapy. Trough level today resulted at 12.6mcg/ml. Scr continues to remain stable at 0.68 today from 0.64 yesterday. We will increase the patient's regimen from 1500mg IV Q8H to 1750mg IV Q8H. A follow-up vancomycin level has been scheduled to be drawn tomorrow, 05/15/18, at 1700. We will continue to monitor and adjust dosing accordingly. 05/13/18: Day #2 IV vancomycin therapy. Trough level today resulted at 8.9mcg/ml. Scr remains stable at 0.64 today from 0.71 yesterday. We will increase the patient's regimen from 1g IV Q8H to 1500mg IV Q8H. A follow-up vancomycin trough has been scheduled to be drawn tomorrow, 05/14/18, at 0900. We will continue to monitor and adjust dosing further if needed. Date: 05/12/18. Pharmacist note: Day #1 vancomycin therapy initiated with a 2g loading dose @1000, followed by a maintenance regimen of 1g IV Q8H starting at 1800 for the treatment of VAP with preliminary sputum culture results growing heavy staph aureus. The patient has been intubated since 05/08/18 and sputum cultures were obtain 05/11/18. The patient was admitted with respiratory failure 2/2 angioedema, and remains intubated at this time. Blood cultures remain negative. CXR today showed "hazy opacity at the right base which may reflect a small amount of pleural fluid. No definite infiltrate." The patient has no PMH of MRSA or vanco use here at [facility]. WBC WNL, and the pts last fever was 05/11/18 at 100.2. A vancomycin level has been scheduled to be drawn tomorrow, 05/13/18, at 0900 - prior to the 4th dose. We will continue to monitor and adjust dosing if needed. TREY SANTOS [facility]ARMACY May 14, 2018 14:05
--- NOTE | 2018-05-14 14:48 | NUR ---
Recommend regular solids, thin liquids. Pt is able to feed himself independently w/o difficulty. Addendum: 05/14/18 at 1449 by JENNIFER GOULD [facility] Amended: Links added.
[2018-05-14] MEDS: VANCOMYCIN HCL 750 MG, VIAL MATE ADAPTER 1 EACH in D5W 250 ML IV SCH (18:39)
--- NOTE | 2018-05-14 20:52 | IPN ---
DATE: 05/14/2018 Patient seen and examined. Status post extubation. Patient transferred from ICU care to hospitalist service. Given patient extubated, tolerating well. Tolerating oral. On nasal cannula. Denies any chest pain, pressure or discomfort. Reported only mild dyspnea. Mild cough. Does not know why he is at the hospital. Denies taking any pills even though it was suspected. VITAL SIGNS: Temperature 99.6, pulse 74, respirations 16, blood pressure 135/70, pulse ox 98% on room air. PHYSICAL EXAMINATION: GENERAL: Patient alert, comfortable. Follows commands. HEENT: Normocephalic. Atraumatic. CARDIAC: Regular S1, S2. PULMONARY: Bilateral clear. ABDOMEN: Soft, nontender. EXTREMITIES: No clubbing, cyanosis or edema. 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 Patient is incarcerated. Known history of drug use. Was brought to the hospital with complaints of shortness of breath, requiring intubation due to tongue swelling. Hospital course complicated with extubation and re-intubation for possible stridor. ENT was consulted with flexible laryngoscopy with no significant finding. Patient has been extubated for the second time. Currently tolerating liquid. Comfortable. In no respiratory distress. PROBLEMS: 1. Respiratory failure secondary to presumed angioedema. Possibly due to illicit drug ingestion. Status post extubation. Will monitor respiratory status. Taper steroids. 2. Right lower lobe pneumonia. Cultures appreciated. Continue Levaquin, vancomycin. Probable drug overdose. Will monitor closely. 3. Probable vocal cord dysfunction. Likely functional. ENT consulted. Likely related to anxiety. 4. Rule out hereditary angioedema. Lab has been sent including C1 esterase inhibitors as well as C3 C4 compliments. Will monitor closely. 5. DVT prophylaxis. Lovenox subcutaneous. Taper steroids. Likely discharge in the next 24 to 48 hours.
[2018-05-15] VITALS: BP 136/91
[2018-05-15] MEDS ORDERED: methylPREDNISolone INJ 40 MG/1 ML VIAL (J2920) IV SCH
[2018-05-15] MEDS: FAMOTIDINE IV BAG 20 MG in APPROPRIATE DILUENT 1 EA IV SCH (00:13)
[2018-05-15] MEDS: LevoFLOXacin IV 500 MG in APPROPRIATE DILUENT 1 EA IV SCH (01:13)
[2018-05-15] MEDS: VANCOMYCIN HCL 1,000 MG, VIAL MATE ADAPTER 1 EACH in D5W 250 ML IV SCH ×2 (02:36→10:24)
[2018-05-15] MEDS: ALBUTEROL SULFATE 2.5 MG/0.5 ML INH NEB SOLN NEB SCH ×2 (03:26→09:22)
[2018-05-15] MEDS: VANCOMYCIN HCL 750 MG, VIAL MATE ADAPTER 1 EACH in D5W 250 ML IV SCH ×2 (03:41→11:41)
[2018-05-15 04:00] VITALS: BP 136/95
[2018-05-15 04:58] LABS: HEMATOCRIT 41.9 % (42.0-52.0); HEMOGLOBIN 13.6 g/dl (13.5-17.5); MEAN CORPUSCULAR HEMOGLOBIN 26.5 pg (27.0-33.0); MEAN CORPUSCULAR HGB CONC 32.5 g/dl (32.0-36.5); MEAN CORPUSCULAR VOLUME 81.5 fl (80.0-96.0); PLATELET COUNT, AUTOMATED 226 10^3/uL (150-450); RED BLOOD COUNT 5.14 10^6/uL (4.30-6.10); WHITE BLOOD COUNT 14.1 10^3/uL (4.0-10.0)
[2018-05-15 05:20] LABS: BLOOD UREA NITROGEN 21 MG/DL (7-18); C REACTIVE PROTEIN QUANTITATIV 2.29 MG/DL (0.00-0.30); CALCIUM LEVEL 8.6 MG/DL (8.5-10.1); CARBON DIOXIDE LEVEL 29 MEQ/L (21-32); CHLORIDE LEVEL 105 MEQ/L (98-107); CREATININE FOR GFR 0.69 MG/DL (0.70-1.30); GLOMERULAR FILTRATION RATE > 60.0 (>60); GLUCOSE, FASTING 156 MG/DL (70-100); POTASSIUM SERUM 3.8 MEQ/L (3.5-5.1); SODIUM LEVEL 141 MEQ/L (136-145)
[2018-05-15 05:42] LABS: ABG BASE EXCESS 4.3 (-2.0-2.0); ABG HCO3 28.9 MEQ/L (22.0-26.0); ABG O2 SATURATION 95.5 % (95.0-99.0); ABG PARTIAL PRESSURE CO2 43.1 mmHg (35.0-45.0); ABG PARTIAL PRESSURE O2 74.6 mmHg (75.0-100.0); ABG STANDARD HCO3 28.3 MEQ/L (22.0-26.0); ABG TOTAL CO2 30.3 MEQ/L (22.0-29.0); ABG pH (ARTERIAL) 7.445 UNITS (7.350-7.450)
[2018-05-15 08:00] VITALS: BP 125/83
--- NOTE | 2018-05-15 08:11 | REP ---
Clinical: Respiratory failure. Technique: Portable upright AP view. Comparison: 05/14/2018. Findings: Endotracheal tube and nasogastric tube have been removed. Mediastinum and cardiac silhouette are normal. Right lower lobe atelectasis is again appreciated. No obvious effusion. No pneumothorax. Skeletal structures stable. Impression: Mild right basilar atelectasis essentially unchanged. Electronically Signed by Morteza Dubon MD 05/15/2018 08:01 A
[2018-05-15] MEDS ORDERED: FAMOTIDINE 20 MG TAB PO SCH (09:00)
[2018-05-15] MEDS ORDERED: ENOXAPARIN 40 MG/0.4 ML SYRINGE (J1650) SC SCH (09:00)
[2018-05-15] MEDS ORDERED: predniSONE 20 MG TAB PO SCH (09:00)
[2018-05-15] MEDS ORDERED: CEFU50TA PO (11:31)
[2018-05-15] MEDS ORDERED: PRED10TA2 PO (11:31)
[2018-05-15 12:00] VITALS: BP 140/88
--- NOTE | 2018-05-15 17:10 | DSES ---
DATE OF ADMISSION: 05/07/2018 DATE OF DISCHARGE: 05/15/2018 PRIMARY CARE PROVIDER: Dr. Holland Fernández, [facility] [address] MAGISTRATE: Dr. Jone Jonas EARS, NOSE, AND THROAT PROVIDER: Dr. Mahin Wan FINAL DIAGNOSES: 1. Acute respiratory failure secondary to presumed angioedema, possibly due to illicit drug ingestion. 2. Right lower lobe pneumonia with Haemophilus influenza, Staphylococcus aureus, and streptococcus group C. 3. Probable vocal cord dysfunction. 4. Rule out hereditary angioedema. 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 Patient was incarcerated. Was brought to the hospital complaining of shortness of breath. Told the emergency department (ED) that he had a history of hereditary angioedema. Within minutes, patient's tongue was swelling with shortness of breath and was intubated, on propofol drip. Additional information obtained from correction officers. 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 The guard tells me it unfortunately happens commonly. They were unsure of the medications that were traded. Further history is limited. HOSPITAL COURSE: Patient was intubated, brought to intensive care unit (ICU). Electroencephalogram (EEG) was done. Patient was extubated on 05/09/2018. Subsequently complicated with stridor. Subsequently re-intubated. EEG was done. Ears, nose, and throat (ENT) was consulted. Laryngoscope was done. Patient was treated with antibiotics. Cultures were appreciated for presumed pneumonia. Patient's condition gradually improved. Sedation vacation and weaning trial were done again. Patient had been placed on intravenous (IV) steroids. Patient's condition gradually improved. Tolerated spontaneous trial. Subsequently, patient was extubated and doing well, tolerating oral. Transferred to hospitalist service for further care. Cultures were appreciated. Antibiotics were adjusted based on culture. Steroid was tapered. Patient independent in the room, able to ambulate, tolerating oral, ready to be discharged for further care as outpatient. VITAL SIGNS: Temperature 99.8, pulse 85, respirations 18, blood pressure 140/88, pulse oximetry 95% on room air. LABORATORY DATA: WBC 14.1, hemoglobin and hematocrit 13.6/41.9, platelets 226. Chemistry: Sodium 141, potassium 3.8, chloride 105, bicarbonate 29, BUN 21, creatinine 0.69, C-reactive protein 2.29. PHYSICAL EXAMINATION: GENERAL: Patient alert, comfortable in no acute distress. HEENT: Normocephalic, atraumatic. PULMONARY: Bilaterally clear. CARDIAC: Regular, S1, S2. ABDOMEN: Soft, nontender. Positive bowel sounds. EXTREMITIES: No clubbing, cyanosis, or edema. DISCHARGE MEDICATIONS: - Ceftin 500 mg by mouth twice a day for 5 more days - prednisone taper, 10 mg tablet, take four tablets by mouth daily for 2 days, three tablets daily for 2 days, then two tablets by mouth daily for 2 days, then one tablet by mouth daily for 2 days, then stop. DISCHARGE INSTRUCTIONS: Please followup with primary care provider in 7 days. Return to the hospital if symptoms worsen.
== END 2018-05-15 12:56 | DRG 133 ==
LOC: M ED 21:05 → M ED INP 23:55 → M ICU 05-08 02:20
PROVIDERS: ADMIT Internal Medicine Pulmonary Disease; ATTEND Hospitalist
PROC: 0BH17EZ Insertion of Endotracheal Airway into Trachea, Via Natural or Artificial Opening (ICD-10-PCS; principal; 2018-05-07)
PROC: 5A1945Z Respiratory Ventilation, 24-96 Consecutive Hours (ICD-10-PCS; 2018-05-09)
PROC: 0BH17EZ Insertion of Endotracheal Airway into Trachea, Via Natural or Artificial Opening (ICD-10-PCS; 2018-05-09)
PROC: 0CJS8ZZ Inspection of Larynx, Via Natural or Artificial Opening Endoscopic (ICD-10-PCS; 2018-05-11)
DX: J96.00 Acute respiratory failure, unspecified whether with hypoxia or hypercapnia (principal); J14 Pneumonia due to Hemophilus influenzae; D84.1 Defects in the complement system; T78.3XXA Angioneurotic edema, initial encounter; T50.905A Adverse effect of unspecified drugs, medicaments and biological substances, initial encounter; J38.3 Other diseases of vocal cords; R41.82 Altered mental status, unspecified; F19.10 Other psychoactive substance abuse, uncomplicated; Z88.8 Allergy status to other drugs, medicaments and biological substances

== ENCOUNTER → 2018-11-24 | Outpatient (CLI) | payer MEDICAID ==
[~2018-11-24] MED LIST changes: +BUPR15TA; +BUSP30TA; +CEFU50TA PO; +IBUP200C25 PO; +MIRT45TA4; +PATIENT COMMENTS; +PRED10TA2 PO
== END ==
LOC: M OUTALCOH 10:19
PROVIDERS: ATTEND Psychiatry & Neurology Psychiatry
DX: F11.10 Opioid abuse, uncomplicated (principal); F12.20 Cannabis dependence, uncomplicated

== ENCOUNTER → 2021-12-05 | Outpatient (REF) | payer OTHER ==
[2021-12-05 14:04] LABS: HEMATOCRIT 43.1 % (42.0-52.0); HEMOGLOBIN 13.4 g/dl (13.5-17.5); MEAN CORPUSCULAR HEMOGLOBIN 26.2 pg (27.0-33.0); MEAN CORPUSCULAR HGB CONC 31.1 g/dl (32.0-36.5); MEAN CORPUSCULAR VOLUME 84.2 fl (80.0-96.0); PLATELET COUNT, AUTOMATED 247 10^3/uL (150-450); RED BLOOD COUNT 5.12 10^6/uL (4.30-6.10); WHITE BLOOD COUNT 5.9 10^3/uL (4.0-10.0)
[2021-12-05 14:53] LABS: ALBUMIN 3.8 GM/DL (3.2-5.2); ALT/SGPT 69 U/L (12-78); BILIRUBIN,TOTAL 0.3 MG/DL (0.2-1.0); BLOOD UREA NITROGEN 12 MG/DL (7-18); CALCIUM LEVEL 9.1 MG/DL (8.5-10.1); CARBON DIOXIDE LEVEL 32 MEQ/L (21-32); CHLORIDE LEVEL 103 MEQ/L (98-107); CREATININE FOR GFR 0.71 MG/DL (0.70-1.30); GLOMERULAR FILTRATION RATE > 60.0 (>60); GLUCOSE, FASTING 81 MG/DL (70-100); POTASSIUM SERUM 4.8 MEQ/L (3.5-5.1); SODIUM LEVEL 139 MEQ/L (136-145); TOTAL PROTEIN 7.4 GM/DL (6.4-8.2)
[2021-12-05 16:19] LABS: HEPATITIS B SURFACE ANTIGEN NEGATIVE (NEGATIVE)
[2021-12-05 17:07] LABS: GC DNA AMPLIFICATION NEGATIVE (NEGATIVE)
[2021-12-05 17:35] LABS: HIV 1&2 SCREEN CENTAUR NEGATIVE (NEGATIVE)
[2021-12-05 19:11] LABS: HEPATITIS C VIRUS ABY INDEX 8.9 INDEX (<0.8)
== END ==
LOC: M LAB REF 12:37
PROVIDERS: ATTEND Family Medicine
DX: F11.20 Opioid dependence, uncomplicated (principal)

== ENCOUNTER 2022-07-12 00:55 | Inpatient (IN) | payer OTHER ==
[~2022-07-12] VITALS: Ht 188 cm; Wt 119.4 kg
[2022-07-12] VITALS (29 sets, daily range): BP systolic 84–106; BP diastolic 50–69
[2022-07-12] MEDS ORDERED: METH-1177 PO (01:03)
[2022-07-12] MEDS ORDERED: C1 ESTERASE INHIBITOR IV ONE (01:15)
[2022-07-12] MEDS ORDERED: FAMOTIDINE 20MG/2ML VIAL IVP ONE (01:15)
[2022-07-12] MEDS ORDERED: diphenhydrAMINE 50MG/ML VIAL IV ONE (01:15)
[2022-07-12] MEDS ORDERED: NS 1,000 ML IV ONE (01:15)
[2022-07-12] MEDS ORDERED: MORPHINE 4 MG/ML 1ML VIAL IV ONE (02:40)
[2022-07-12 02:46] LABS: BASO % 0.5 % (0.0-1.0); EOS % 0.5 % (0.0-3.0); HEMATOCRIT 39.2 % (42.0-52.0); HEMOGLOBIN 12.8 g/dl (13.5-17.5); LYMPH # 1.9 10^3/uL (1.5-5.0); LYMPH % 26.2 % (24.0-44.0); MEAN CORPUSCULAR HEMOGLOBIN 25.9 pg (27.0-33.0); MEAN CORPUSCULAR HGB CONC 32.7 g/dl (32.0-36.5); MEAN CORPUSCULAR VOLUME 79.4 fl (80.0-96.0); MONO # 0.4 10^3/uL (0.0-0.8); NEUTROPHILS # 4.9 10^3/uL (1.5-8.5); NEUTROPHILS % 66.7 % (36.0-66.0); PLATELET COUNT, AUTOMATED 235 10^3/uL (150-450); RED BLOOD COUNT 4.94 10^6/uL (4.30-6.10); WHITE BLOOD COUNT 7.4 10^3/uL (4.0-10.0)
[2022-07-12 02:54] LABS: ERYTHROCYTE SEDIMENTATION RATE 32 mm/hr (0-15)
[2022-07-12 03:19] LABS: RSV AMPLIFICATION NEGATIVE (NEGATIVE)
[2022-07-12 03:21] LABS: BLOOD UREA NITROGEN 12 MG/DL (9-23); CALCIUM LEVEL 8.6 MG/DL (8.5-10.1); CARBON DIOXIDE LEVEL 29 MMOL/L (20-31); CHLORIDE LEVEL 103 MMOL/L (98-107); CREATININE FOR GFR 0.86 MG/DL (0.70-1.30); GLOMERULAR FILTRATION RATE > 60.0 (>60); GLUCOSE, FASTING 99 MG/DL (60-100); POTASSIUM SERUM 4.1 MMOL/L (3.5-5.1); SODIUM LEVEL 139 MMOL/L (136-145)
[2022-07-12 03:22] LABS: COMPLEMENT C4 35.2 MG/DL (12-36)
[2022-07-12] MEDS: propofoL 1,000 MG in IV 1 EA IV SCH ×4 (03:27→14:20)
[2022-07-12] MEDS ORDERED: ISOVUE-370 76% 100ML VIAL As Ordered ONE (03:57)
[2022-07-12 04:38] LABS: ABG BASE EXCESS 0.7 (-2.0-2.0); ABG HCO3 24.7 MMOL/L (22.0-26.0); ABG O2 SATURATION 97.5 % (95.0-99.0); ABG PARTIAL PRESSURE CO2 37.7 mmHg (35.0-45.0); ABG PARTIAL PRESSURE O2 89.8 mmHg (75.0-100.0); ABG STANDARD HCO3 25.1 MMOL/L. (22.0-26.0); ABG TOTAL CO2 25.9 MMOL/L (22.0-29.0); ABG pH (ARTERIAL) 7.435 UNITS (7.350-7.450)
[2022-07-12] MEDS ORDERED: MIDAZOLAM INJ 2MG/2ML VIAL IV STA (04:47)
[2022-07-12] MEDS: cefTRIAXone SOD 1 GM in D5W MINI-BAG PLUS 50 ML IV SCH (06:47)
[2022-07-12] MEDS ORDERED: LR 1,000 ML IV SCH (07:00)
[2022-07-12] MEDS: methylPREDNISolone 125MG 2ML VIAL IV SCH ×3 (07:44→23:18)
[2022-07-12] MEDS ORDERED: AZITHROMYCIN INJ 500 MG, VIAL MATE ADAPTER 1 EACH in NS 250 ML IV SCH (08:00)
[2022-07-12] MEDS: CHLORHEXIDINE GLUCONATE 0.12 % 15ML UDC (PERIDEX ORAL RINSE) MT SCH ×2 (08:06→21:40)
[2022-07-12] MEDS: PANTOPRAZOLE 40MG VIAL IV SCH (08:22)
[2022-07-12] MEDS: ENOXAPARIN 40MG/0.4ML SYRINGE (J1650 PER 10MG) SC SCH (08:22)
[2022-07-12] MEDS: CETIRIZINE (ZyrTEC) 10 MG TAB NG SCH (08:23)
[2022-07-12] MEDS: MIDAZOLAM INJ 2MG/2ML VIAL IV PRN ×3 (11:39→16:40)
[2022-07-12] MEDS ORDERED: LR 1,000 ML IV ONE (15:30)
[2022-07-12] MEDS: MIDAZOLAM 100MG/100ML-0.9%NACL 100 MG in IV 1 EA IV SCH (16:48)
[2022-07-12] MEDS ORDERED: METHADONE 10MG TAB PO ONE (17:00)
[2022-07-13] VITALS (23 sets, daily range): BP systolic 99–136; BP diastolic 55–72
[2022-07-13] MEDS: MIDAZOLAM INJ 2MG/2ML VIAL IV PRN ×2 (03:29→05:15)
[2022-07-13] MEDS: cefTRIAXone SOD 1 GM in D5W MINI-BAG PLUS 50 ML IV SCH (05:07)
[2022-07-13 05:31] LABS: ABG BASE EXCESS -1.7 (-2.0-2.0); ABG HCO3 22.3 MMOL/L (22.0-26.0); ABG O2 SATURATION 96.8 % (95.0-99.0); ABG PARTIAL PRESSURE CO2 35.7 mmHg (35.0-45.0); ABG PARTIAL PRESSURE O2 85.6 mmHg (75.0-100.0); ABG TOTAL CO2 23.4 MMOL/L (22.0-29.0); ABG pH (ARTERIAL) 7.414 UNITS (7.350-7.450)
[2022-07-13 07:11] LABS: HEMATOCRIT 37.7 % (42.0-52.0); HEMOGLOBIN 11.9 g/dl (13.5-17.5); MEAN CORPUSCULAR HEMOGLOBIN 25.8 pg (27.0-33.0); MEAN CORPUSCULAR HGB CONC 31.6 g/dl (32.0-36.5); MEAN CORPUSCULAR VOLUME 81.6 fl (80.0-96.0); PLATELET COUNT, AUTOMATED 219 10^3/uL (150-450); RED BLOOD COUNT 4.62 10^6/uL (4.30-6.10); WHITE BLOOD COUNT 14.5 10^3/uL (4.0-10.0)
[2022-07-13] MEDS: MIDAZOLAM 100MG/100ML-0.9%NACL 100 MG in IV 1 EA IV SCH (07:13)
[2022-07-13 07:32] LABS: BLOOD UREA NITROGEN 18 MG/DL (9-23); CALCIUM LEVEL 8.7 MG/DL (8.5-10.1); CARBON DIOXIDE LEVEL 28 MMOL/L (20-31); CHLORIDE LEVEL 109 MMOL/L (98-107); CREATININE FOR GFR 0.72 MG/DL (0.70-1.30); GLOMERULAR FILTRATION RATE > 60.0 (>60); GLUCOSE, FASTING 123 MG/DL (60-100); POTASSIUM SERUM 4.1 MMOL/L (3.5-5.1); SODIUM LEVEL 142 MMOL/L (136-145)
[2022-07-13] MEDS: methylPREDNISolone 125MG 2ML VIAL IV SCH ×2 (08:02→16:15)
[2022-07-13] MEDS: PANTOPRAZOLE 40MG VIAL IV SCH (08:02)
[2022-07-13] MEDS: CHLORHEXIDINE GLUCONATE 0.12 % 15ML UDC (PERIDEX ORAL RINSE) MT SCH (08:03)
[2022-07-13] MEDS: CETIRIZINE (ZyrTEC) 10 MG TAB NG SCH (08:03)
[2022-07-13] MEDS: ENOXAPARIN 40MG/0.4ML SYRINGE (J1650 PER 10MG) SC SCH (08:03)
[2022-07-13] MEDS ORDERED: METHADONE 10MG TAB PO STA (11:12)
[2022-07-13] MEDS ORDERED: RACEPINEPHrine 2.25% UD INHAL INH ONE (11:55)
[2022-07-13] MEDS ORDERED: BENZOCAINE 10% 9GM TUBE (ANBESOL) TOP PRN (16:00)
[2022-07-13] MEDS: metroNIDAZOLE (FLAGYL) 500MG TABLET PO SCH ×2 (18:00→21:16)
[2022-07-14] MEDS: methylPREDNISolone 125MG 2ML VIAL IV SCH ×3 (00:02→21:11)
[2022-07-14 00:06] VITALS: BP 122/76
[2022-07-14 04:01] VITALS: BP 106/58
[2022-07-14] MEDS: metroNIDAZOLE (FLAGYL) 500MG TABLET PO SCH ×3 (05:29→21:11)
[2022-07-14] MEDS: cefTRIAXone SOD 1 GM in D5W MINI-BAG PLUS 50 ML IV SCH (05:29)
[2022-07-14 06:29] LABS: BASO % 0.1 % (0.0-1.0); HEMATOCRIT 37.2 % (42.0-52.0); HEMOGLOBIN 12.1 g/dl (13.5-17.5); LYMPH # 1.3 10^3/uL (1.5-5.0); LYMPH % 9.2 % (24.0-44.0); MEAN CORPUSCULAR HEMOGLOBIN 26.4 pg (27.0-33.0); MEAN CORPUSCULAR HGB CONC 32.5 g/dl (32.0-36.5); MONO # 0.4 10^3/uL (0.0-0.8); MONO % 2.4 % (2.0-8.0); NEUTROPHILS # 12.8 10^3/uL (1.5-8.5); NEUTROPHILS % 87.5 % (36.0-66.0); PLATELET COUNT, AUTOMATED 222 10^3/uL (150-450); RED BLOOD COUNT 4.59 10^6/uL (4.30-6.10); WHITE BLOOD COUNT 14.6 10^3/uL (4.0-10.0)
[2022-07-14 07:02] LABS: ALBUMIN 3.1 G/DL (3.2-5.2); ALKALINE PHOSPHATASE 96 U/L (46-116); ALT/SGPT 33 U/L (7.0-40); AST/SGOT 24 U/L (<34); BILIRUBIN,TOTAL 0.2 MG/DL (0.3-1.2); BLOOD UREA NITROGEN 16 MG/DL (9-23); CALCIUM LEVEL 8.5 MG/DL (8.5-10.1); CARBON DIOXIDE LEVEL 27 MMOL/L (20-31); CHLORIDE LEVEL 109 MMOL/L (98-107); CREATININE FOR GFR 0.65 MG/DL (0.70-1.30); GLOMERULAR FILTRATION RATE > 60.0 (>60); GLUCOSE, FASTING 124 MG/DL (60-100); POTASSIUM SERUM 4.3 MMOL/L (3.5-5.1); SODIUM LEVEL 142 MMOL/L (136-145); TOTAL PROTEIN 6.1 G/DL (5.7-8.2)
[2022-07-14 08:00] VITALS: BP 125/83
[2022-07-14] MEDS: CETIRIZINE (ZyrTEC) 10 MG TAB NG SCH (08:10)
[2022-07-14] MEDS: PANTOPRAZOLE 40MG VIAL IV SCH (08:10)
[2022-07-14] MEDS: ENOXAPARIN 40MG/0.4ML SYRINGE (J1650 PER 10MG) SC SCH (08:11)
[2022-07-14] MEDS ORDERED: METHADONE 10MG TAB PO ONE (09:00)
[2022-07-14 16:00] VITALS: BP 153/97
[2022-07-14 20:00] VITALS: BP 129/75
[2022-07-15] VITALS: BP 142/92
[2022-07-15 04:00] VITALS: BP 154/88
[2022-07-15 04:32] LABS: BASO % 0.1 % (0.0-1.0); HEMATOCRIT 38.8 % (42.0-52.0); HEMOGLOBIN 12.8 g/dl (13.5-17.5); LYMPH # 1.3 10^3/uL (1.5-5.0); LYMPH % 10.3 % (24.0-44.0); MEAN CORPUSCULAR HEMOGLOBIN 26.4 pg (27.0-33.0); MEAN CORPUSCULAR VOLUME 80.2 fl (80.0-96.0); MONO # 0.5 10^3/uL (0.0-0.8); MONO % 3.6 % (2.0-8.0); NEUTROPHILS % 85.1 % (36.0-66.0); PLATELET COUNT, AUTOMATED 220 10^3/uL (150-450); RED BLOOD COUNT 4.84 10^6/uL (4.30-6.10); WHITE BLOOD COUNT 12.9 10^3/uL (4.0-10.0)
[2022-07-15 04:49] LABS: ALBUMIN 3.2 G/DL (3.2-5.2); ALKALINE PHOSPHATASE 96 U/L (46-116); ALT/SGPT 31 U/L (7.0-40); AST/SGOT 16 U/L (<34); BILIRUBIN,TOTAL 0.2 MG/DL (0.3-1.2); BLOOD UREA NITROGEN 16 MG/DL (9-23); CALCIUM LEVEL 8.3 MG/DL (8.5-10.1); CARBON DIOXIDE LEVEL 26 MMOL/L (20-31); CHLORIDE LEVEL 107 MMOL/L (98-107); GLOMERULAR FILTRATION RATE > 60.0 (>60); GLUCOSE, FASTING 134 MG/DL (60-100); SODIUM LEVEL 141 MMOL/L (136-145); TOTAL PROTEIN 6.4 G/DL (5.7-8.2)
[2022-07-15] MEDS: cefTRIAXone SOD 1 GM in D5W MINI-BAG PLUS 50 ML IV SCH (05:06)
[2022-07-15] MEDS: metroNIDAZOLE (FLAGYL) 500MG TABLET PO SCH (05:06)
[2022-07-15] MEDS ORDERED: MIRALAX *UNIT DOSE* 17GM PACKET PO PRN (08:00)
[2022-07-15] MEDS ORDERED: SENNA 8.6 MG TAB (SENOKOT) PO PRN (08:00)
[2022-07-15] MEDS ORDERED: METHADONE 10MG TAB PO ONE (08:00)
[2022-07-15] MEDS ORDERED: HOME MED LIST COMPLETE! XX SCH (08:00)
[2022-07-15] MEDS ORDERED: METHADONE 5MG TAB PO ONE (08:05)
[2022-07-15] MEDS: PANTOPRAZOLE 40MG VIAL IV SCH (08:42)
[2022-07-15] MEDS ORDERED: PROT1TAB2 PO (08:43)
[2022-07-15] MEDS ORDERED: CLAR5TAB11 PO (08:43)
[2022-07-15] MEDS: methylPREDNISolone 125MG 2ML VIAL IV SCH (08:43)
[2022-07-15] MEDS: ENOXAPARIN 40MG/0.4ML SYRINGE (J1650 PER 10MG) SC SCH (08:43)
[2022-07-15] MEDS: CETIRIZINE (ZyrTEC) 10 MG TAB NG SCH (08:43)
[2022-07-15] MEDS ORDERED: PRED10TA2 PO (08:43)
[2022-07-15] MEDS ORDERED: CEFD300C PO (08:46)
[2022-07-15 08:55] VITALS: BP 143/90
[2022-07-15] MEDS ORDERED: CLAR10CA3 PO (10:43)
[2022-07-16 00:07] LABS: C1 ESTER INHIB. NON FUNCTIONAL 29 mg/dL (21-39); C1 ESTERASE INHIB. FUNCTIONAL > 93 (.); TRYPTASE 3.1 ug/L (2.2-13.2)
== END 2022-07-15 10:55 | DRG 811 ==
LOC: M ED 00:55 → M ED INP 04:15 → M ICU 06:16
PROVIDERS: ADMIT Internal Medicine Pulmonary Disease; ATTEND Internal Medicine
PROC: 0BH17EZ Insertion of Endotracheal Airway into Trachea, Via Natural or Artificial Opening (ICD-10-PCS; principal; 2022-07-12)
PROC: 5A1945Z Respiratory Ventilation, 24-96 Consecutive Hours (ICD-10-PCS; 2022-07-12)
DX: T78.3XXA Angioneurotic edema, initial encounter (principal); J15.6 Pneumonia due to other Gram-negative bacteria; J96.01 Acute respiratory failure with hypoxia; F19.10 Other psychoactive substance abuse, uncomplicated; D84.1 Defects in the complement system

== ENCOUNTER 2022-10-27 23:07 | Emergency (ER) | payer MEDICAID, OTHER ==
[~2022-10-27] VITALS: Ht 185.4 cm; Wt 51.8 kg
[~2022-10-27 23:07] MED LIST changes: +CEFD300C PO; +CLAR10CA3 PO; +CLAR5TAB11 PO; +METH-1177 PO; +PROT1TAB2 PO
[2022-10-27] MEDS ORDERED: NS 1,000 ML IV ONE (23:15)
[2022-10-28 01:12] LABS: RSV AMPLIFICATION NEGATIVE (NEGATIVE)
[2022-10-28 03:18] LABS: ALBUMIN 2.8 G/DL (3.2-5.2); ALKALINE PHOSPHATASE 108 U/L (46-116); ALT/SGPT 23 U/L (7.0-40); AST/SGOT 35 U/L (<34); BILIRUBIN,TOTAL 0.2 MG/DL (0.3-1.2); BLOOD UREA NITROGEN 9 MG/DL (9-23); CALCIUM LEVEL 8.6 MG/DL (8.5-10.1); CARBON DIOXIDE LEVEL 26 MMOL/L (20-31); CHLORIDE LEVEL 104 MMOL/L (98-107); CREATININE FOR GFR 0.51 MG/DL (0.70-1.30); GLOMERULAR FILTRATION RATE > 60.0 (>60); GLUCOSE, FASTING 96 MG/DL (60-100); MAGNESIUM LEVEL 1.9 MG/DL (1.8-2.4); POTASSIUM SERUM 4.7 MMOL/L (3.5-5.1); SODIUM LEVEL 137 MMOL/L (136-145); TOTAL PROTEIN 6.8 G/DL (5.7-8.2)
[2022-10-28 03:21] LABS: THYROID STIMULATING HORMONE 0.423 uIU/ML (0.55-4.78)
[2022-10-28 03:23] LABS: CPK CREATINE PHOSPHOKINASE 84 U/L (46-171)
[2022-10-28 07:14] VITALS: BP 144/67; TEMP 98.2; O2SAT 96
[2022-10-28 07:25] LABS: AMPHETAMINES LEVEL URINE NEGATIVE (NEGATIVE); BARBITURATES URINE NEGATIVE (NEGATIVE); COCAINE METABOLITE URINE NEGATIVE (NEGATIVE)
[2022-10-28 07:26] LABS: OPIATES URINE NEGATIVE (NEGATIVE); PHENCYCLIDINE URINE NEGATIVE (NEGATIVE)
[2022-10-28 07:31] LABS: BENZODIAZEPINES URINE POSITIVE (NEGATIVE); CANNABINOIDS URINE POSITIVE (NEGATIVE); METHADONE URINE POSITIVE (NEGATIVE)
== END 2022-10-28 07:21 | disposition home or self-care (01) ==
LOC: M ED 23:07
DX: G40.909 Epilepsy, unspecified, not intractable, without status epilepticus (principal); K21.9 Gastro-esophageal reflux disease without esophagitis; F10.10 Alcohol abuse, uncomplicated; F12.10 Cannabis abuse, uncomplicated; Z86.79 Personal history of other diseases of the circulatory system; Z88.8 Allergy status to other drugs, medicaments and biological substances; Z79.2 Long term (current) use of antibiotics; Z79.899 Other long term (current) drug therapy

== ENCOUNTER 2022-12-26 18:40 | Emergency (ER) | payer OTHER ==
[~2022-12-26] VITALS: Ht 185.4 cm; Wt 108.8 kg
[2022-12-26 18:50] VITALS: BP 141/77; TEMP 96.8; O2SAT 97
== END 2022-12-26 19:00 | disposition left against medical advice (07) ==
LOC: M ED 18:40 → EDBD 18:40 → M ED 19:00
DX: Z53.21 Procedure and treatment not carried out due to patient leaving prior to being seen by health care provider (principal)

== ENCOUNTER 2023-01-06 23:45 | Emergency (ER) | payer OTHER ==
[~2023-01-06] VITALS: Ht 185.4 cm; Wt 101.2 kg
[2023-01-06 23:55] VITALS: TEMP 98.7
[2023-01-07] MEDS ORDERED: C1 ESTERASE INHIBITOR IV ONE (00:55)
[2023-01-07] MEDS ORDERED: C1 ESTERASE INHIBITOR (HUMAN) 2,000 UNIT in IV 1 EA IV ONE (01:03)
[2023-01-07] MEDS ORDERED: MORPHINE 4 MG/ML 1ML VIAL IV PRN (01:30)
[2023-01-07] MEDS ORDERED: ONDANSETRON 4MG 2ML VIAL IV ONE (01:30)
[2023-01-07 02:59] LABS: ALBUMIN 3.2 G/DL (3.2-5.2); ALKALINE PHOSPHATASE 95 U/L (46-116); ALT/SGPT 15 U/L (7.0-40); AST/SGOT 23 U/L (<34); BILIRUBIN,DIRECT 0.1 MG/DL (<0.4); BILIRUBIN,TOTAL 0.3 MG/DL (0.3-1.2); BLOOD UREA NITROGEN 10 MG/DL (9-23); CALCIUM LEVEL 8.6 MG/DL (8.5-10.1); CARBON DIOXIDE LEVEL 23 MMOL/L (20-31); CHLORIDE LEVEL 104 MMOL/L (98-107); CREATININE FOR GFR 0.52 MG/DL (0.70-1.30); GLOMERULAR FILTRATION RATE > 60.0 (>60); GLUCOSE, FASTING 99 MG/DL (60-100); POTASSIUM SERUM 4.3 MMOL/L (3.5-5.1); SODIUM LEVEL 137 MMOL/L (136-145); TOTAL PROTEIN 7.2 G/DL (5.7-8.2)
[2023-01-07 05:00] VITALS: BP 126/87; O2SAT 98
[2023-01-12 15:07] LABS: C1 ESTER INHIB. NON FUNCTIONAL 46 mg/dL (21-39); C1 ESTERASE INHIB. FUNCTIONAL > 93 (.); COAGULATION FACTOR XII ACTIVIT 80 % (50-150); TRYPTASE 3.2 ug/L (2.2-13.2)
== END 2023-01-07 05:03 | disposition home or self-care (01) ==
LOC: M ED 23:45 → EDBD 23:45 → M ED 01-07 05:03
DX: D84.1 Defects in the complement system (principal); Z88.8 Allergy status to other drugs, medicaments and biological substances; Z79.899 Other long term (current) drug therapy
CPT/HCPCS: 80048; 80076; 83519; 85280; 85652; 86140; 86160; 86161; 86850; 86900; 86901; 93041; 94760; 96374; 96375; 99285; J0597; J2405

== ENCOUNTER 2023-10-08 23:05 | Emergency (ER) | payer OTHER ==
[~2023-10-08] VITALS: Ht 185.4 cm; Wt 93.9 kg
[2023-10-09 07:29] VITALS: BP 134/82; TEMP 97.8; O2SAT 96
== END 2023-10-09 07:44 | disposition left against medical advice (07) ==
LOC: EEVIPCON 23:05 → M ED 23:05
DX: L03.116 Cellulitis of left lower limb (principal); M71.062 Abscess of bursa, left knee; F17.210 Nicotine dependence, cigarettes, uncomplicated; Z88.8 Allergy status to other drugs, medicaments and biological substances; Z79.899 Other long term (current) drug therapy; Z53.9 Procedure and treatment not carried out, unspecified reason

== ENCOUNTER 2023-10-13 00:10 | Inpatient (IN) | payer MEDICAID, OTHER ==
[~2023-10-13] VITALS: Ht 185.4 cm; Wt 93.1 kg
[2023-10-13 02:49] LABS: BASO % 0.5 % (0.0-1.0); EOS # 0.2 10^3/uL (0.0-0.5); EOS % 2.4 % (0.0-3.0); HEMATOCRIT 35.4 % (42.0-52.0); HEMOGLOBIN 11.4 g/dl (13.5-17.5); LYMPH # 1.8 10^3/uL (1.5-5.0); LYMPH % 23.1 % (24.0-44.0); MEAN CORPUSCULAR HEMOGLOBIN 26.3 pg (27.0-33.0); MEAN CORPUSCULAR HGB CONC 32.2 g/dl (32.0-36.5); MEAN CORPUSCULAR VOLUME 81.8 fl (80.0-96.0); MONO # 0.6 10^3/uL (0.0-0.8); MONO % 7.5 % (2.0-8.0); NEUTROPHILS # 5.2 10^3/uL (1.5-8.5); NEUTROPHILS % 66.4 % (36.0-66.0); PLATELET COUNT, AUTOMATED 392 10^3/uL (150-450); RED BLOOD COUNT 4.33 10^6/uL (4.30-6.10); WHITE BLOOD COUNT 7.8 10^3/uL (4.0-10.0)
[2023-10-13 03:15] LABS: ALBUMIN 3.2 G/DL (3.2-5.2); ALKALINE PHOSPHATASE 84 U/L (46-116); ALT/SGPT 21 U/L (7.0-40); AST/SGOT 22 U/L (<34); BILIRUBIN,DIRECT 0.1 MG/DL (<0.4); BILIRUBIN,TOTAL 0.3 MG/DL (0.3-1.2); BLOOD UREA NITROGEN 7 MG/DL (9-23); CALCIUM LEVEL 8.7 MG/DL (8.5-10.1); CARBON DIOXIDE LEVEL 32 MMOL/L (20-31); CHLORIDE LEVEL 104 MMOL/L (98-107); GLOMERULAR FILTRATION RATE > 60.0 (>60); GLUCOSE, FASTING 88 MG/DL (60-100); POTASSIUM SERUM 3.9 MMOL/L (3.5-5.1); SODIUM LEVEL 138 MMOL/L (136-145); TOTAL PROTEIN 6.9 G/DL (5.7-8.2)
[2023-10-13] MEDS: CEFTAROLINE FOSAMIL 600 MG in D5W MINI-BAG PLUS 50 ML IV ONE (03:27)
[2023-10-13 05:02] LABS: PROCALCITONIN 0.08 ng/ml
[2023-10-13] MEDS ORDERED: HOME MED LIST COMPLETE! XX SCH (08:00)
[2023-10-13] MEDS: ENOXAPARIN 40MG/0.4ML SYRINGE (J1650 PER 10MG) SC SCH (09:00)
[2023-10-13] MEDS ORDERED: PILL CUTTER 1 EACH XX ONE (11:34)
[2023-10-13] MEDS: METHADONE 10MG TAB PO SCH (11:38)
[2023-10-13 14:24] VITALS: BP 128/85; TEMP 97.3; O2SAT 98
[2023-10-13] MEDS: CEFTAROLINE FOSAMIL 600 MG in D5W MINI-BAG PLUS 50 ML IV SCH (16:10)
[2023-10-13 20:00] VITALS: BP 138/72; TEMP 97.9; O2SAT 99
[2023-10-13 20:05] VITALS: BP 129/86; TEMP 97.2; O2SAT 96
[2023-10-14 04:00] VITALS: BP 121/79; TEMP 97.3; O2SAT 96
== END 2023-10-14 09:24 | disposition left against medical advice (07) | DRG 383 ==
LOC: M ED 00:10 → M ED INP 04:24 → M MSPAV 14:59
PROVIDERS: ADMIT Student in an Organized Health Care Education/Training Program; ATTEND Student in an Organized Health Care Education/Training Program
DX: L02.416 Cutaneous abscess of left lower limb (principal); L03.116 Cellulitis of left lower limb; F17.210 Nicotine dependence, cigarettes, uncomplicated; D84.1 Defects in the complement system; Z59.00 Homelessness unspecified; Z88.8 Allergy status to other drugs, medicaments and biological substances; A49.02 Methicillin resistant Staphylococcus aureus infection, unspecified site

== ENCOUNTER 2024-06-12 16:46 | Emergency (ER) | payer MEDICAID ==
[~2024-06-12] VITALS: Ht 185.4 cm; Wt 113.9 kg
[2024-06-12 16:50] VITALS: BP 136/84; TEMP 97.6; O2SAT 98
== END 2024-06-12 18:00 | disposition left against medical advice (07) ==
LOC: M ED 16:46
DX: Z53.21 Procedure and treatment not carried out due to patient leaving prior to being seen by health care provider (principal)